=== PATIENT | female | born 1960 | race Caucasian/White ===

== ENCOUNTER 2017-08-08 19:11 | Inpatient (IN) ==
[2017-08-08] MEDS ORDERED: MetroNIDAZOLE 500 MG/100 ML 500 MG/100 ML BAG IVPB ONE (19:49)
[2017-08-08 20:10] LABS: Basophils # 0.1 K/mcL (0.0-0.2); Basophils % 0.5 %; Eosinophils % 0.3 %; Hematocrit 37.8 % (35.3-44.9); Hemoglobin 12.5 g/dL (11.5-15.4); Immature Granulocytes % 0.4 % (0-4); Lymphocytes # 0.8 K/mcL (0.6-4.6); Mean Corpuscular HGB Conc 33.1 g/dL (31.6-35.5); Mean Corpuscular Volume 87.7 fL (83.0-100.0); Mean Platelet Volume 8.6 fL (9.4-12.4); Monocytes # 1.1 K/mcL (0.0-1.3); Monocytes % 9.8 %; Neutrophils # 8.8 K/mcL (1.6-8.9); Platelet Count 270 K/mcL (140-400); Red Blood Count 4.31 M/mcL (3.82-4.97)
--- NOTE | 2017-08-08 20:11 | Emergency Department Note ---
Disposition Clinical Impression: Transaminitis Abdominal pain Qualifiers: Abdominal location: generalized Qualified Code(s): R10.84 - Generalized abdominal pain Nausea and vomiting Qualifiers: Vomiting type: unspecified Vomiting Intractability: unspecified Qualified Code( s): R11.2 - Nausea with vomiting, unspecified Disposition: Admitted As Inpatient Condition: Fair Time of Disposition: 23:15 General Adult HPI - General Chief complaint: ED Nausea/Vomiting/Diarrhea Stated complaint: Nausea/Vomiting/Fever/Chills Time Seen by Provider: 08/08/17 19:15 Source: EMS Limitations: no limitations Nursing Notes Reviewed: Yes Vital Signs Reviewed: Yes - History of Present Illness HPI Narrative: Patient is a 57-year-old female that presents to the emergency department with chest pain, abdominal pain and vomiting. She states that this began this morning. States the chest pain is left side along with right shoulder pain. Patient denies any injury. States that she vomited once today. Has had no diarrhea. Patient states that she has pain on left side of her chest that is nonradiating. She denies any shortness of breath or palpitations at this time. Patient states that she receives chemotherapy every 2 weeks and the last time that she had chemotherapy was approximately 2 weeks ago. She receives treatments here at the cancer center. Pain Scale: 8 - Related Data Previous Rx's Medication Instructions Recorded Lidocaine/Prilocaine CREAM [Emla] 5 gm TP DAILY #1 tube 10/19/15 Dexamethasone [Decadron] 4 mg PO DAILY #30 tablet 03/14/17 LORazepam [Ativan] 1 mg PO Q6H PRN #60 tablet 03/14/17 Ondansetron [Zofran] 8 mg PO Q8HR PRN #90 tablet 03/14/17 Prochlorperazine Maleate 10 mg PO Q6HR PRN #120 tablet 03/14/17 [Compazine] Acyclovir [Zovirax] 400 mg PO DAILY #30 tablet 04/15/17 Pregabalin [Lyrica] 50 mg PO TID #90 capsule 06/11/17 FLUoxetine HCl [Prozac] 40 mg PO DAILY #30 capsule 07/04/17 Lisinopril [Zestril] 20 mg PO DAILY #30 tablet 07/04/17 Pantoprazole Sodium [Protonix] 20 mg PO DAILY #30 tab 07/04/17 Oxycodone HCl [Oxaydo] 5 - 10 mg PO Q4H PRN #180 07/17/17 tablet.orl Allergies Allergy/AdvReac Type Severity Reaction Status Date / Time adhesive tape AdvReac Rash Verified 07/24/17 11:28 Oxycodone [From Tylox] AdvReac Vomiting Verified 07/24/17 11:28 rivaroxaban [From Xarelto] AdvReac See Verified 07/24/17 11:28 Comments All systems ED: reviewed and negative except as stated. Cardiovascular: Reports: chest pain. Denies: palpitations Respiratory: Denies: wheezes Gastrointestinal: Reports: abdominal pain, nausea, vomiting Neurological: Reports: headache Past Medical History - Past Medical History Medical history: Reports: arthritis, cancer, fibromyalgia, GERD, hyperlipidemia , hypertension Surgical history: Reports: cancer surgery Psychiatric history: Reports: depression - Social History Smoking Status: Former smoker Smokeless Tobacco Status: No Alcohol use: Reports: rarely Drug use: Reports: none Physical Exam - General Limitations: no limitations General appearance: alert, other (Patient appears to be uncomfortable) - Head Head exam: atraumatic, normocephalic - Eye Eye exam: Present: normal appearance, EOMI - Neck Neck exam: Present: normal inspection, full ROM, trachea midline - Respiratory Respiratory exam: Present: normal lung sounds bilaterally. Absent: respiratory distress, wheezes - Cardiovascular Cardiovascular exam: Present: tachycardia, normal heart sounds, +S1, +S2 - Abdominal Exam Abdominal exam: Present: soft, tenderness, normal bowel sounds Abdominal tenderness: Present: diffuse, moderate - Neurological Exam Neurological exam: Present: alert, oriented X3 - Psychiatric Psychiatric exam: Present: normal affect, normal mood - Skin Skin exam: Present: warm, dry, intact Course Vital Signs Temperature 97.8 F 08/08/17 19:14 Pulse Rate 117 08/08/17 19:14 Respiratory Rate 20 08/08/17 19:14 Blood Pressure 145/82 08/08/17 19:14 O2 Sat by Pulse Oximetry 94 08/08/17 19:14 Temperature 98.2 F 08/09/17 06:56 Pulse Rate 83 08/09/17 06:56 Respiratory Rate 16 08/09/17 06:56 Blood Pressure 129/84 08/09/17 06:56 O2 Sat by Pulse Oximetry 96 08/09/17 06:56 Oxygen Delivery Oxygen Delivery Room Air Medical Decision Making - MDM Narrative Medical decision making narrative: Patient presenting with nausea vomiting and having some tachycardia with chest discomfort we ordered a CTA of the chest abdomen and pelvis. He also ordered laboratory testing. There was a transaminitis and elevated bilirubin on laboratory findings. CT the chest showed no acute findings. A CT scan of abdomen and pelvis showed There is increased intrahepatic biliary dilation when compared to the previous examination. A ultrasound of the gallbladder was ordered which showed a common bile duct measuring 3-4 mm. Patient will be admitted to the hospital for abdominal pain and elevated laboratory findings. The patient was given a dose of Cipro and Flagyl here in the emergency department. Patient was given a dose of Zofran to help with her nausea. Urinalysis showed moderate leuk esterase. Patient has been given a dose of Cipro which will cover for urinary tract infection. I called and spoke to hospitalist and they have accepted the patient to their service. The patient will be admitted to the hospital at this time. - Medical Records Medical records reviewed: Yes I reviewed the patient's medical records. - Lab Data Lab results reviewed: Yes I reviewed the patient's lab results. Result diagrams: 08/09/17 03:43 08/09/17 03:43 Lab Results 08/08/17 08/08/17 08/08/17 Range/Units 20:00 20:00 20:00 WBC 10.7 (4.3-11.1) K/mcL RBC 4.31 (3.82-4.97) M/mcL Hgb 12.5 (11.5-15.4) g/dL Hct 37.8 (35.3-44.9) % MCV 87.7 (83.0-100.0) fL MCH 29.0 (28.0-33.3) pg MCHC 33.1 (31.6-35.5) g/dL RDW 16.0 H (11.5-14.5) % Plt Count 270 (140-400) K/mcL MPV 8.6 L (9.4-12.4) fL Immature Gran % 0.4 (0-4) % Seg Neutrophils % 82.0 % Lymphocytes % 7.0 % Monocytes % 9.8 % Eosinophils % 0.3 % Basophils % 0.5 % Neutrophils # 8.8 (1.6-8.9) K/mcL Lymphocytes # 0.8 (0.6-4.6) K/mcL Monocytes # 1.1 (0.0-1.3) K/mcL Eosinophils # 0.0 (0.0-0.6) K/mcL Basophils # 0.1 (0.0-0.2) K/mcL PT 11.6 (9.4-12.1) Seconds INR 1.1 APTT 31.0 (26.0-36.0) Seconds Sodium 136 (136-145) mEq/L Potassium 4.1 (3.5-5.1) mEq/L Chloride 102 (98-107) mEq/L Carbon Dioxide 28 (23-29) mEq/L BUN 8 (6-20) mg/dL Creatinine 0.67 (0.60-1.20) mg/dL Est GFR ( Amer) > 60 (> 60) Est GFR (Non-Af Amer) > 60 (> 60) BUN/Creatinine Ratio 12 (6-26) Glucose 114 H (70-105) mg/dL Calculated Osmolality 281 (280-300) Calcium 9.5 (8.6-10.3) mg/dL Total Bilirubin 3.0 H (0.3-1.0) mg/dL Direct Bilirubin 2.0 H (0.0-0.2) mg/dL Indirect Bilirubin 1.0 (0.0-1.2) mg/dL AST 175 H (13-39) Units/L ALT 150 H (7-52) Units/L Alkaline Phosphatase 577 H (34-104) Units/L Troponin I (< 0.04) ng/mL Serum Total Protein 6.6 (6.4-8.9) g/dL Albumin 3.7 (3.5-5.7) g/dL Globulin 2.9 (2.4-3.5) g/dL Albumin/Globulin Ratio 1.3 (1.1-2.2) Lipase 13 (11-82) Units/L Urine Color (Yellow) Urine Clarity (Clear) Urine pH (5.0-8.0) pH Units Ur Specific [place] (1.010-1.025) Urine Protein (Neg-Trace) mg/dL Urine Glucose (UA) (Normal) mg/dL Urine Ketones (Negative) mg/dL Urine Blood (Negative) Urine Nitrite (Negative) Urine Bilirubin (Negative) Urine Urobilinogen (Normal) mg/dL Ur Leukocyte Esterase (Negative) Urine Microscopic RBC (0-3) per hpf Urine Microscopic WBC (0-3) per hpf Ur Squamous Epith Cells (None-Few) per lpf Uric Acid Crystals Urine Bacteria (None-Few) per hpf Hyaline Casts (None-Few) per lpf Ur Culture Indicated? (NO) 08/08/17 08/08/17 Range/Units 20:00 21:04 WBC (4.3-11.1) K/mcL RBC (3.82-4.97) M/mcL Hgb (11.5-15.4) g/dL Hct (35.3-44.9) % MCV (83.0-100.0) fL MCH (28.0-33.3) pg MCHC (31.6-35.5) g/dL RDW (11.5-14.5) % Plt Count (140-400) K/mcL MPV (9.4-12.4) fL Immature Gran % (0-4) % Seg Neutrophils % % Lymphocytes % % Monocytes % % Eosinophils % % Basophils % % Neutrophils # (1.6-8.9) K/mcL Lymphocytes # (0.6-4.6) K/mcL Monocytes # (0.0-1.3) K/mcL Eosinophils # (0.0-0.6) K/mcL Basophils # (0.0-0.2) K/mcL PT (9.4-12.1) Seconds INR APTT (26.0-36.0) Seconds Sodium (136-145) mEq/L Potassium (3.5-5.1) mEq/L Chloride (98-107) mEq/L Carbon Dioxide (23-29) mEq/L BUN (6-20) mg/dL Creatinine (0.60-1.20) mg/dL Est GFR ( Amer) (> 60) Est GFR (Non-Af Amer) (> 60) BUN/Creatinine Ratio (6-26) Glucose (70-105) mg/dL Calculated Osmolality (280-300) Calcium (8.6-10.3) mg/dL Total Bilirubin (0.3-1.0) mg/dL Direct Bilirubin (0.0-0.2) mg/dL Indirect Bilirubin (0.0-1.2) mg/dL AST (13-39) Units/L ALT (7-52) Units/L Alkaline Phosphatase (34-104) Units/L Troponin I < 0.03 (< 0.04) ng/mL Serum Total Protein (6.4-8.9) g/dL Albumin (3.5-5.7) g/dL Globulin (2.4-3.5) g/dL Albumin/Globulin Ratio (1.1-2.2) Lipase (11-82) Units/L Urine Color Dark Yellow (Yellow) Urine Clarity Cloudy A (Clear) Urine pH 8.0 (5.0-8.0) pH Units Ur Specific [place] 1.028 H (1.010-1.025) Urine Protein 30 H (Neg-Trace) mg/dL Urine Glucose (UA) Normal (Normal) mg/dL Urine Ketones Negative (Negative) mg/dL Urine Blood Negative (Negative) Urine Nitrite Negative (Negative) Urine Bilirubin Small H (Negative) Urine Urobilinogen Normal (Normal) mg/dL Ur Leukocyte Esterase Moderate H (Negative) Urine Microscopic RBC 3-5 H (0-3) per hpf Urine Microscopic WBC TNTC H (0-3) per hpf Ur Squamous Epith Cells Many H (None-Few) per lpf Uric Acid Crystals Present Urine Bacteria None Seen (None-Few) per hpf Hyaline Casts None Seen (None-Few) per lpf Ur Culture Indicated? NO (NO) - Radiology Data Radiology results reviewed: Yes I reviewed the patient's radiology results. Abdomen/Pelvis CT 08/08/17 19:46 IMPRESSION: 1. There is increased intrahepatic biliary dilation when compared to the previous examination. This may suggest biliary drain malfunction. The position of the biliary drain is unchanged when compared to the previous exam. Correlate with laboratory evidence of biliary obstruction. 2. Stable postsurgical changes from previous partial hepatectomy. Again, there is hypodensity along the resection margin, which appears stable when compared to the previous exam. That should be followed up on subsequent exams. 3. Nodular lesions within the lower lung on the left. These are concerning for metastatic disease but appear unchanged when compared to the previous exam. 4. Stable mural thickening of the left posterosuperior urinary bladder wall. Continued surveillance of that is recommended. D/ / Samir Marx MD / Samir Marx MD Interpreting Provider: Samir Marx MD Chest CTA 08/08/17 19:46 IMPRESSION: No acute findings. Stable pulmonary findings D/ / Zak Pham MD / Zak Pham MD Interpreting Provider: Zak Pham MD Liver Ultrasound 08/08/17 21:35 IMPRESSION: The common duct is technically normal at 3-4 mm. However, on the CT scan, a biliary stent is in place, and therefore that measurement may not be a reliable indication of whether biliary obstruction is present or not. D/ / Samir Marx MD / Samir Marx MD Interpreting Provider: Samir Marx MD - EKG Data EKG #1 EKG attestation: Yes I reviewed and interpreted this EKG. EKG results narrative: the patient's EKG showed sinus tachycardia at a rate of 107 with a GA interval of 145, QRS duration of 85, QTC of 382. Attestation Statement - Attestation Attestation: Findings of nausea and vomiting. Will obtain gallbladder ultrasound after CT shows possible biliary obstruction. We will rule out choledocholithiasis. I agree with the resident's plan of care. Disposition will be admission.
[2017-08-08 20:15] LABS: INR 1.1; Prothrombin Time 11.6 Seconds (9.4-12.1)
[2017-08-08 20:28] LABS: Alanine Aminotransferase 150 Units/L (7-52); Albumin 3.7 g/dL (3.5-5.7); Albumin/Globulin Ratio 1.3 (1.1-2.2); Alkaline Phosphatase 577 Units/L (34-104); Aspartate Amino Transferase 175 Units/L (13-39); BUN/Creatinine Ratio 12 (6-26); Blood Urea Nitrogen 8 mg/dL (6-20); Calcium 9.5 mg/dL (8.6-10.3); Carbon Dioxide 28 mEq/L (23-29); Chloride 102 mEq/L (98-107); Globulin 2.9 g/dL (2.4-3.5); Glucose 114 mg/dL (70-105); Lipase 13 Units/L (11-82); Osmolality,Calculated 281 (280-300); Potassium 4.1 mEq/L (3.5-5.1); Sodium 136 mEq/L (136-145); Total Protein 6.6 g/dL (6.4-8.9); eGFR For African Americans > 60 (> 60); eGFR For Non-African Americans > 60 (> 60)
[2017-08-08 21:17] LABS: Bilirubin,Urine Small (Negative); Blood,Urine Negative (Negative); Clarity,Urine Cloudy (Clear); Color,Urine Dark Yellow (Yellow); Glucose,Urine (UA) Normal (Normal); Ketones,Urine Negative (Negative); Leukocyte Esterase,Urine Moderate (Negative); Nitrite,Urine Negative (Negative); Protein,Urine 30 mg/dL (Neg-Trace); Specific Gravity,Urine 1.028 (1.010-1.025); Urobilinogen,Urine Normal (Normal)
[2017-08-08 21:18] LABS: Bacteria,Urine None Seen per hpf (None-Few); Hyaline Casts,Urine None Seen per lpf (None-Few); Squamous Epithelial Cell,Urine Many per lpf (None-Few); WBC,Urine TNTC per hpf (0-3)
[2017-08-08 21:28] LABS: Uric Acid Crystals,Urine Present
[2017-08-08] MEDS ORDERED: Ondansetron 4 MG/2 ML VIAL IVP ONE (23:04)
[2017-08-09] MEDS ORDERED: *HR* Morphine 2 MG/ML SYRINGE IVP PRN (02:56)
[2017-08-09] MEDS ORDERED: *HR* Metoprolol 5 MG/5 ML VIAL IVP PRN (02:56)
[2017-08-09] MEDS ORDERED: *HR* OxyCODONE/APAP 5/325 TABLET PO PRN (02:56)
[2017-08-09] MEDS ORDERED: metroNIDAZOLE 500 MG TABLET PO SCH (03:00)
[2017-08-09] MEDS ORDERED: 0.9 % Sodium Chloride 1,000 ML IVC SCH (03:00)
[2017-08-09] MEDS ORDERED: *HR* OxyCODONE Immed Rel 5 MG TABLET PO PRN (03:09)
[2017-08-09] MEDS ORDERED: *HR* LORazepam 1 MG TABLET PO PRN (03:10)
[2017-08-09] MEDS ORDERED: Oxymetazoline Nasal SPRAY BOTTLE NS PRN (03:10)
--- NOTE | 2017-08-09 03:14 | Internal Med History&Physical ---
Date of Encounter: 08/09/17 Time of Encounter: 03:11 Assessment and Plan (1) Abdominal pain Current visit: Yes Status: Acute Likely due to biliary obstruction, possibly cholecystitis or diverticulitis as she does have a history but was not seen on CT today. Will continue Cipro/ Flagyl, give IV fluids, pain and nausea symptomatic treatment. Will avoid Percocet given elevated LFTs. Surgical consult in AM. Qualifiers: Abdominal location: generalized Qualified Code(s): R10.84 - Generalized abdominal pain (2) Colon cancer metastasized to liver Current visit: No Status: Chronic (3) Colon cancer metastasized to lung Current visit: No Status: Chronic (4) Essential hypertension Current visit: Yes Status: Acute Resume home medication (5) GERD (gastroesophageal reflux disease) Current visit: Yes Status: Acute Qualifiers: Esophagitis presence: esophagitis presence not specified Qualified Code(s) : K21.9 - Gastro-esophageal reflux disease without esophagitis (6) Hyperlipidemia Current visit: Yes Status: Acute Qualifiers: Hyperlipidemia type: unspecified Qualified Code(s): E78.5 - Hyperlipidemia , unspecified (7) UTI (urinary tract infection) Current visit: Yes Status: Acute will be covered with Cipro Qualifiers: Urinary tract infection type: site unspecified Hematuria presence: without hematuria Qualified Code(s): N39.0 - Urinary tract infection, site not specified (8) DVT prophylaxis Current visit: Yes Status: Acute Heparin Internal Medicine - H&P: HPI History of present illness: Ms. Hernandez is a 57 year old female with history of colon cancer with mets, history of partial hepatectomy done at [facility], and hypertension presented for acute abdominal pain and dyspnea. Accompanied with nausea/vomiting, emesis, chills, and poor appetite for several days. She denies change in stools, not associated with meals. Colon cancer is actively managed here at [facility] and patient is doing chemotherapy. She takes oxycodone at home for chronic pain but was still persistent. In ED patient was tachycardic in 100-117 bpm and normotensive. She is afebrile and with no leukocytosis. A CT abdomen/pelvis showed increased intrahepatic biliary dilation compared to prior studies which may suggest biliary drain malformation and notes that a stent is in place. A follow-up right upper quadrant ultra sound showed common duct stent and could not reliably rule out biliary obstruction. She had elevated liver enzymes which were higher than most recent LFT studies. Blood cultures were obtained and she was given Cipro/Flagyl IV. A CTA of chest done and negative, was done because patient initially had complaints of dyspnea, which have since resolved. Past Med Surg Social Fam HX - Past Medical History Medical history: arthritis, cancer, fibromyalgia, GERD, hyperlipidemia, hypertension Psychiatric history: depression - Past Surgical History Surgical History: cancer surgery - Social History Smoking Status: Former smoker Smokeless Tobacco Status: No Alcohol use: rarely Drug use: none Internal Medicine - H&P: Meds Lidocaine/Prilocaine CREAM [Emla] 5 gm TP DAILY #1 tube 10/19/15 [Rx] Oxymetazoline [Afrin] 1 spray NS Q12HR PRN #1 bottle 10/28/16 [Rx] Dexamethasone [Decadron] 4 mg PO DAILY #30 tablet 03/14/17 [Rx] LORazepam [Ativan] 1 mg PO Q6H PRN #60 tablet 03/14/17 [Rx] Ondansetron [Zofran] 8 mg PO Q8HR PRN #90 tablet 03/14/17 [Rx] Prochlorperazine Maleate [Compazine] 10 mg PO Q6HR PRN #120 tablet 03/14/17 [Rx] Acyclovir [Zovirax] 400 mg PO DAILY #30 tablet 04/15/17 [Rx] Loperamide [Imodium] 2 mg PO DAILY PRN 05/26/17 [History] Pregabalin [Lyrica] 50 mg PO TID #90 capsule 06/11/17 [Rx] FLUoxetine HCl [Prozac] 40 mg PO DAILY #30 capsule 07/04/17 [Rx] Lisinopril [Zestril] 20 mg PO DAILY #30 tablet 07/04/17 [Rx] Pantoprazole Sodium [Protonix] 20 mg PO DAILY #30 tab 07/04/17 [Rx] Ciprofloxacin HCl [Cipro] 500 mg PO BID 07/16/17 [History] Oxycodone HCl [Oxaydo] 5 - 10 mg PO Q4H PRN #180 tablet.orl 07/17/17 [Rx] 3 Allergy/AdvReac Type Severity Reaction Status Date / Time adhesive tape AdvReac Rash Verified 07/24/17 11:28 Oxycodone [From Tylox] AdvReac Vomiting Verified 07/24/17 11:28 rivaroxaban [From Xarelto] AdvReac See Verified 07/24/17 11:28 Comments All Systems PM: A 10-system review of systems was performed and is negative for pertinent findings except as documented above in the HPI. - Constitutional Constitutional: chills, no excessive sweating, no fever(s), no lethargy, no night sweats, no weakness - EENT Eyes: no change in vision, no discharge, no pain, no photophobia - Cardiovascular Cardiovascular ROS IM: no chest pain, no diaphoresis, no dyspnea, no lightheadedness, no palpitations, no syncope - Respiratory Respiratory: no cough, no dyspnea (resolved), no wheezing, no excessive phlegm production - Gastrointestinal Gastrointestinal: abdominal pain, nausea, vomiting, no change in bowel habits, no change in stool character, no coffee ground emesis, no constipation, no diarrhea, no dyspepsia, no dysphagia, no hematemesis, no hematochezia, no loose stools, no odynophagia - Genitourinary Genitourinary: no change in urinary stream, no dysuria, no flank pain, no hematuria - Musculoskeletal Musculoskeletal ROS IM: no numbness, no tingling - Integumentary Integumentary IM: no rash, no unusual bruising - Constitutional Vitals: Temp Pulse Resp BP Pulse Ox 99.4 F 100 15 140/84 91 08/09/17 00:47 08/09/17 00:47 08/09/17 00:47 08/09/17 00:47 08/09/17 00:47 General appearance: Present: mild distress, A&O X 3 Exam: - Head Head exam: atraumatic, normocephalic - Eye Eye exam: Present: normal appearance, EOMI - Neck Neck exam: Present: normal inspection, full ROM, trachea midline - Respiratory Respiratory exam: Present: normal lung sounds bilaterally. Absent: respiratory distress, wheezes - Cardiovascular Cardiovascular exam: Present: tachycardia, normal heart sounds, +S1, +S2 - Abdominal Exam Abdominal exam: Present: soft, tenderness, normal bowel sounds Abdominal tenderness: Present: diffuse, moderate - Neurological Exam Neurological exam: Present: alert, oriented X3 - Psychiatric Psychiatric exam: Present: normal affect, normal mood - Skin Skin exam: Present: warm, dry, intact Internal Med - H&P Results - Labs CBC & Chem 7: 08/08/17 20:00 08/08/17 20:00
[2017-08-09] MEDS ORDERED: Naloxone 0.4 MG/ML INJ IVP PRN (03:32)
[2017-08-09 03:50] LABS: Basophils % 0.4 %; Eosinophils % 0.3 %; Hematocrit 36.8 % (35.3-44.9); Hemoglobin 12.2 g/dL (11.5-15.4); Immature Granulocytes % 0.4 % (0-4); Lymphocytes # 1.3 K/mcL (0.6-4.6); Lymphocytes % 12.5 %; Mean Corpuscular HGB Conc 33.2 g/dL (31.6-35.5); Mean Corpuscular Hemoglobin 29.3 pg (28.0-33.3); Mean Corpuscular Volume 88.5 fL (83.0-100.0); Mean Platelet Volume 8.7 fL (9.4-12.4); Monocytes # 1.3 K/mcL (0.0-1.3); Neutrophils # 7.9 K/mcL (1.6-8.9); Platelet Count 289 K/mcL (140-400); Red Blood Count 4.16 M/mcL (3.82-4.97); Red Cell Distribution Width 16.2 % (11.5-14.5); Segmented Neutrophils % 74.4 %
[2017-08-09 04:06] LABS: BUN/Creatinine Ratio 12 (6-26); Blood Urea Nitrogen 8 mg/dL (6-20); Carbon Dioxide 25 mEq/L (23-29); Chloride 102 mEq/L (98-107); Glucose 108 mg/dL (70-105); Potassium 3.7 mEq/L (3.5-5.1); Sodium 136 mEq/L (136-145); eGFR For African Americans > 60 (> 60); eGFR For Non-African Americans > 60 (> 60)
[2017-08-09 04:07] LABS: Albumin 3.6 g/dL (3.5-5.7); Albumin/Globulin Ratio 1.3 (1.1-2.2); Bilirubin,Direct 2.6 mg/dL (0.0-0.2); Bilirubin,Indirect 1.7 mg/dL (0.0-1.2); Bilirubin,Total 4.3 mg/dL (0.3-1.0); Calcium 9.4 mg/dL (8.6-10.3); Globulin 2.8 g/dL (2.4-3.5); Osmolality,Calculated 281 (280-300); Total Protein 6.4 g/dL (6.4-8.9)
[2017-08-09] MEDS ORDERED: *HR* Heparin 5,000 UNIT/ML VIAL SQ SCH (06:00)
[2017-08-09 06:57] VITALS: BP 129/84
[2017-08-09] MEDS ORDERED: Acyclovir 200 MG CAPSULE PO SCH (09:00)
[2017-08-09] MEDS ORDERED: FLUoxetine 20 MG CAPSULE PO SCH (09:00)
[2017-08-09] MEDS ORDERED: Pregabalin 50 MG CAPSULE PO SCH (09:00)
[2017-08-09] MEDS ORDERED: Lisinopril 20 MG TABLET PO SCH (09:00)
--- NOTE | 2017-08-09 16:11 | Discharge Summary ---
Date of Encounter: 08/09/17 Time of Encounter: 16:11 - Discharge Medications Home Medications: Lidocaine/Prilocaine CREAM [Emla] 5 gm TP DAILY #1 tube 10/19/15 [Rx] Dexamethasone [Decadron] 4 mg PO DAILY #30 tablet 03/14/17 [Rx] LORazepam [Ativan] 1 mg PO Q6H PRN #60 tablet 03/14/17 [Rx] Ondansetron [Zofran] 8 mg PO Q8HR PRN #90 tablet 03/14/17 [Rx] Prochlorperazine Maleate [Compazine] 10 mg PO Q6HR PRN #120 tablet 03/14/17 [Rx] Acyclovir [Zovirax] 400 mg PO DAILY #30 tablet 04/15/17 [Rx] Pregabalin [Lyrica] 50 mg PO TID #90 capsule 06/11/17 [Rx] FLUoxetine HCl [Prozac] 40 mg PO DAILY #30 capsule 07/04/17 [Rx] Lisinopril [Zestril] 20 mg PO DAILY #30 tablet 07/04/17 [Rx] Pantoprazole Sodium [Protonix] 20 mg PO DAILY #30 tab 07/04/17 [Rx] Oxycodone HCl [Oxaydo] 5 - 10 mg PO Q4H PRN #180 tablet.orl 07/17/17 [Rx] Allergies/Adverse Reactions: 3 Allergy/AdvReac Type Severity Reaction Status Date / Time adhesive tape AdvReac Rash Verified 07/24/17 11:28 Oxycodone [From Tylox] AdvReac Vomiting Verified 07/24/17 11:28 rivaroxaban [From Xarelto] AdvReac See Verified 07/24/17 11:28 Comments Date of admission: 08/09/17 03:32 Primary care physician: Jennifer Fortune Consults: 08/09/17 03:34 Consult to Surgery [CONS] Routine Consulting Provider: [facility] Reason for Consult: Acute abominal pain, possible biliary obstruction. Call Completed: No - Patient Status Disposition: Transfer [facility] Condition: Fair - Discharge Instructions Instructions: Acute Abdominal Pain (DC) Follow Up With: Marcell Simon DO [Primary Care Provider] - Interval History: Patient was transferred to outside facility as she needed and ERCP because of dilated common bile duct. This cannot be done at our hospital in the weekend. Patient was hemodynamically stable. She was showing no signs of cholangitis. She was normotensive undischarged. I did not have a chance to take detailed history and examination of the patient which was done earlier by admitting physician. Hospital course: Ms. Hernandez is a 57 year old female - Time Spent with Patient Total time spent providing and/or coordinating discharge services: - Constitutional Vitals: Temp Pulse Resp BP Pulse Ox 98.2 F 83 16 129/84 96 08/09/17 06:56 08/09/17 06:56 08/09/17 06:56 08/09/17 06:56 08/09/17 06:56 General appearance: Present: mild distress, A&O X 3
--- NOTE | 2017-08-12 15:00 | Electrocardiograph Report ---
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
== END 2017-08-09 11:32 | disposition other institution (70) | DRG 445 ==
LOC: EMEROO 19:11 → 3ANU 19:11
PROVIDERS: ADMIT Student in an Organized Health Care Education/Training Program; ATTEND Internal Medicine

== ENCOUNTER 2017-11-20 11:22 | Inpatient (IN) ==
--- NOTE | 2017-11-20 11:29 | Emergency Department Note ---
Disposition Clinical Impression: Vertigo, Unable to ambulate Fall Qualifiers: Encounter type: initial encounter Qualified Code(s): W19.XXXA - Unspecified fall, initial encounter Head injury Qualifiers: Encounter type: initial encounter Qualified Code(s): S09.90XA - Unspecified injury of head, initial encounter Disposition: Admitted As Inpatient Condition: Good Referrals: Marcell Simon DO [Primary Care Provider] - Forms: ED Satisfaction Letter Time of Disposition: 14:21 Fall HPI - General Chief Complaint: ED Fall Stated Complaint: Fall Time Seen by Provider: 11/20/17 11:28 Source: patient Mode of arrival: ambulatory Limitations: no limitations Nursing Notes Reviewed: Yes Vital Signs Reviewed: Yes - History of Present Illness HPI Narrative: Patient is a 57 old female with past medical history of 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 She presents today due to fall. She is not currently on any blood thinners, does admit that she is on aspirin 81 mg daily. She says that she was at home, bent over and getting something out of the freezer, stood up quickly and her vision went dark, she felt lightheaded and then fell backwards. She denies any syncope before or after the event. She had no right posterior aspect of her head on carpeted floor. Denies any other injuries. She does admit to pain on the back of her head and also some mild cervical spine pain. Otherwise, denies any other numbness, tingling, weakness, any other injury, nausea, vomiting, abdominal pain, extremities pain. - Related Data Home Medications Medication Instructions Recorded Confirmed Amlodipine Besylate 10 mg PO DAILY 11/13/17 11/13/17 Docusate Sodium [Dok] 100 mg PO BID 11/13/17 11/13/17 Sennosides [Senna] 8.6 mg PO DAILY 11/13/17 11/13/17 Previous Rx's Medication Instructions Recorded Lidocaine/Prilocaine CREAM [Emla] 5 gm TP DAILY #1 tube 10/19/15 Dexamethasone [Decadron] 4 mg PO DAILY #30 tablet 03/14/17 LORazepam [Ativan] 1 mg PO Q6H PRN #60 tablet 03/14/17 Ondansetron [Zofran] 8 mg PO Q8HR PRN #90 tablet 03/14/17 Prochlorperazine Maleate 10 mg PO Q6HR PRN #120 tablet 03/14/17 [Compazine] Acyclovir [Zovirax] 400 mg PO DAILY #30 tablet 04/15/17 FLUoxetine HCl [Prozac] 40 mg PO DAILY #30 capsule 07/04/17 Lisinopril [Zestril] 20 mg PO DAILY #30 tablet 07/04/17 Pantoprazole Sodium [Protonix] 20 mg PO DAILY #30 tab 07/04/17 diazePAM [Valium] 5 mg PO Q6H PRN #10 tablet 08/28/17 Pregabalin [Lyrica] 50 mg PO TID 30 Days #90 capsule 09/18/17 Doxycycline 100 mg PO BID #60 capsule 11/13/17 FentaNYL PATCH [Duragesic] 25 mcg TD Q72H 30 Days #10 11/13/17 patch.td72 Oxycodone HCl [Oxaydo] 5 - 10 mg PO Q6H PRN 15 Days #120 11/13/17 tablet.orl Vemurafenib [Zelboraf] 960 mg PO BID #240 tablet 11/14/17 Allergies Allergy/AdvReac Type Severity Reaction Status Date / Time adhesive tape AdvReac Rash Verified 11/20/17 11:32 Oxycodone [From Tylox] AdvReac Vomiting Verified 11/20/17 11:32 rivaroxaban [From Xarelto] AdvReac See Verified 11/20/17 11:32 Comments All systems ED: reviewed and negative except as stated. Constitutional: Denies: fever Cardiovascular: Denies: chest pain Respiratory: Denies: cough, dyspnea Gastrointestinal: Denies: abdominal pain, nausea, vomiting, diarrhea Genitourinary: Denies: urgency, dysuria Musculoskeletal: Reports: neck pain. Denies: back pain Integumentary: Denies: rash Neurological: Reports: headache. Denies: weakness, paresthesias Fall PMH - Past Medical History Medical history: Reports: arthritis, cancer, fibromyalgia, GERD, hyperlipidemia , hypertension Surgical history: Reports: cancer surgery Psychiatric history: Reports: depression - Social History Smoking Status: Former smoker Alcohol use: Reports: rarely Drug use: Reports: none Physical Exam - General Limitations: no limitations General appearance: alert, in no apparent distress - Head Head exam: other (right posterior occiput edema and possible hematoma; No open lesions or bruising. ) - Eye Eye exam: Present: normal appearance, PERRL, EOMI - ENT ENT exam: normal exam, normal oropharynx, mucous membranes moist - Neck Neck exam: Present: normal inspection, full ROM, trachea midline, tenderness ( mild tenderness both spinous process and paraspinal muscle C3-C4) - Chest Chest inspection: Present: normal inspection, symmetric chest wall rise - Respiratory Respiratory exam: Present: normal lung sounds bilaterally - Cardiovascular Cardiovascular exam: Present: regular rate, normal rhythm, normal heart sounds - Abdominal Exam Abdominal exam: Present: soft, Non-Tender. Absent: tenderness, distention, guarding, rebound, rigidity - Extremities Exam Extremities exam: Present: normal inspection, full ROM. Absent: tenderness, pedal edema - Neurological Exam Neurological exam: Present: alert, oriented X3, CN II-XII intact. Absent: motor sensory deficit - Psychiatric Psychiatric exam: Present: normal affect, normal mood - Skin Skin exam: Present: warm, dry, intact, normal color Course Course Narrative: Patient mildly hypertensive on presentation. Otherwise, the rest of the vitals within normal limits. Physical exam shows right posterior occiput edema approximately 3 x 3 cm with no overlying bruising or open lesions. She had some mild paraspinal and spinous process tenderness of C3 and C4. Otherwise, no other obvious injuries. No pain in extremities. No focal neurologic deficits. Cranial nerves II through XII intact. Abdomen soft and nontender. Heart regular rate and rhythm, lungs clear to auscultation. She is not currently on any blood thinners except for aspirin 81 mg daily. Due to site of injury and reported mild confusion after a fall [address] and cervical spine CT due to cervical spinous process tenderness. 14:06 CT the head and cervical spine were negative for acute abnormalities. Patient was reassessed. She is now having vertigo and feels as though the room is spinning every time she tries to raise the bed. She denies any other numbness, tingling, weakness, vision changes. She says that this felt different from original symptom that she felt prior to falling. She feels that she is unable to ambulate at this time. We will admit the patient for further care and observation. Cervical Spine CT 11/20/17 11:42 IMPRESSION: 1. No acute abnormality of the cervical spine. D/ / Wan Grijalva MD / Wan Grijalva MD Interpreting Provider: Wan Grijalva MD Head CT 11/20/17 11:42 IMPRESSION: No acute intracranial abnormality. D/ / Rigo Espinosa MD / Rigo Espinosa MD Interpreting Provider: Rigo Espinosa MD Vital Signs Temperature 97.8 F 11/20/17 11:32 Pulse Rate 86 11/20/17 11:32 Respiratory Rate 11 11/20/17 11:32 Blood Pressure 169/82 11/20/17 11:32 O2 Sat by Pulse Oximetry 98 11/20/17 11:32 Temperature 97.8 F 11/20/17 11:32 Pulse Rate 84 11/20/17 14:02 Respiratory Rate 13 11/20/17 11:41 Blood Pressure 183/84 11/20/17 14:02 O2 Sat by Pulse Oximetry 98 11/20/17 14:02 Oxygen Delivery Oxygen Delivery Room Air Fall - MDM Narrative Medical decision making narrative: CT the head and cervical spine were negative for acute abnormalities. Patient was reassessed. She is now having vertigo and feels as though the room is spinning every time she tries to raise the bed. She denies any other numbness, tingling, weakness, vision changes. She says that this felt different from original symptom that she felt prior to falling. She feels that she is unable to ambulate at this time. We will admit the patient for further care and observation. - Medical Records Medical records reviewed: Yes I reviewed the patient's medical records. - Lab Data Lab results reviewed: Yes I reviewed the patient's lab results. Result diagrams: 11/20/17 13:30 Lab Results 11/20/17 Range/Units 13:30 WBC 10.8 (4.3-11.1) K/mcL RBC 4.28 (3.82-4.97) M/mcL Hgb 12.7 (11.5-15.4) g/dL Hct 38.8 (35.3-44.9) % MCV 90.7 (83.0-100.0) fL MCH 29.7 (28.0-33.3) pg MCHC 32.7 (31.6-35.5) g/dL RDW 16.4 H (11.5-14.5) % Plt Count 286 (140-400) K/mcL MPV 9.6 (9.4-12.4) fL Immature Gran % 0.5 (0-4) % Seg Neutrophils % 73.2 % Lymphocytes % 16.7 % Monocytes % 8.0 % Eosinophils % 0.8 % Basophils % 0.8 % Neutrophils # 7.9 (1.6-8.9) K/mcL Lymphocytes # 1.8 (0.6-4.6) K/mcL Monocytes # 0.9 (0.0-1.3) K/mcL Eosinophils # 0.1 (0.0-0.6) K/mcL Basophils # 0.1 (0.0-0.2) K/mcL - Radiology Data Radiology results reviewed: Yes I reviewed the patient's radiology results. Cervical Spine CT 11/20/17 11:42 IMPRESSION: 1. No acute abnormality of the cervical spine. D/ / Wan Grijalva MD / Wan Grijalva MD Interpreting Provider: Wan Grijalva MD Head CT 11/20/17 11:42 IMPRESSION: No acute intracranial abnormality. D/ / Rigo Espinosa MD / Rigo Espinosa MD Interpreting Provider: Rigo Espinosa MD - EKG Data EKG attestation: Yes I reviewed and interpreted this EKG. EKG results narrative: 11/20/2017 at 11:26. Normal sinus rhythm. Rate 84. [place] 161. QRS 92. QTC 393. Normal axis. No acute ST elevation or depression. S.B.A.R. - S.B.A.R. Situation: Demographics, MOA Background: Presenting Complaint, Relevant PMH, Meds, & Allergies Assessment: Vital Signs, Course and respsone to treatment, Exam Concerns, Patient/Family Expectation, Pertinant Lab Results Recommendation: Barrier(s) to disposition, Recommendation based on pending studies, treatments, or consults [facility] Report Given to: Dr. Gerri Jacobs Repor Time: 14:21
--- NOTE | 2017-11-20 11:54 | Emergency Department Note ---
Disposition Clinical Impression: Vertigo, Unable to ambulate Fall Qualifiers: Encounter type: initial encounter Qualified Code(s): W19.XXXA - Unspecified fall, initial encounter Head injury Qualifiers: Encounter type: initial encounter Qualified Code(s): S09.90XA - Unspecified injury of head, initial encounter Disposition: Admitted As Inpatient Condition: Good General Adult HPI - General Chief complaint: ED Dizziness Stated complaint: Fall Time Seen by Provider: 11/20/17 11:28 Source: EMS Mode of arrival: ambulatory Limitations: no limitations - History of Present Illness Pain Scale: 7 - Related Data Home Medications Medication Instructions Recorded Confirmed Amlodipine Besylate 10 mg PO DAILY 11/13/17 11/20/17 Docusate Sodium [Dok] 100 mg PO BID 11/13/17 11/20/17 Sennosides [Senna] 8.6 mg PO DAILY 11/13/17 11/20/17 Previous Rx's Medication Instructions Recorded Lidocaine/Prilocaine CREAM [Emla] 5 gm TP DAILY #1 tube 10/19/15 Dexamethasone [Decadron] 4 mg PO DAILY #30 tablet 03/14/17 LORazepam [Ativan] 1 mg PO Q6H PRN #60 tablet 03/14/17 Ondansetron [Zofran] 8 mg PO Q8HR PRN #90 tablet 03/14/17 Prochlorperazine Maleate 10 mg PO Q6HR PRN #120 tablet 03/14/17 [Compazine] Acyclovir [Zovirax] 400 mg PO DAILY #30 tablet 04/15/17 FLUoxetine HCl [Prozac] 40 mg PO DAILY #30 capsule 07/04/17 Lisinopril [Zestril] 20 mg PO DAILY #30 tablet 07/04/17 Pantoprazole Sodium [Protonix] 20 mg PO DAILY #30 tab 07/04/17 diazePAM [Valium] 5 mg PO Q6H PRN #10 tablet 08/28/17 Pregabalin [Lyrica] 50 mg PO TID 30 Days #90 capsule 09/18/17 Doxycycline 100 mg PO BID #60 capsule 11/13/17 FentaNYL PATCH [Duragesic] 25 mcg TD Q72H 30 Days #10 11/13/17 patch.td72 Oxycodone HCl [Oxaydo] 5 - 10 mg PO Q6H PRN 15 Days #120 11/13/17 tablet.orl Vemurafenib [Zelboraf] 960 mg PO BID #240 tablet 11/14/17 Allergies Allergy/AdvReac Type Severity Reaction Status Date / Time adhesive tape AdvReac Rash Verified 11/20/17 11:32 Oxycodone [From Tylox] AdvReac Vomiting Verified 11/20/17 11:32 rivaroxaban [From Xarelto] AdvReac See Verified 11/20/17 11:32 Comments Past Medical History - Past Medical History Medical history: Reports: arthritis, cancer, diabetes, fibromyalgia, GERD, hyperlipidemia, hypertension Surgical history: Reports: cancer surgery Psychiatric history: Reports: depression - Social History Smoking Status: Former smoker Smokeless Tobacco Status: No Alcohol use: Reports: rarely Drug use: Reports: none Physical Exam - General Limitations: no limitations General appearance: alert, in no apparent distress Course Vital Signs Temperature 97.8 F 11/20/17 11:32 Pulse Rate 86 11/20/17 11:32 Respiratory Rate 11 11/20/17 11:32 Blood Pressure 169/82 11/20/17 11:32 O2 Sat by Pulse Oximetry 98 11/20/17 11:32 Temperature 97.9 F 11/20/17 18:40 Pulse Rate 85 11/20/17 18:40 Respiratory Rate 14 11/20/17 18:40 Blood Pressure 163/87 11/20/17 18:40 O2 Sat by Pulse Oximetry 96 11/20/17 18:40 Oxygen Delivery Oxygen Delivery Room Air Medical Decision Making - Lab Data Result diagrams: 11/20/17 13:30 11/20/17 13:30 Lab Results 11/20/17 11/20/17 Range/Units 13:30 13:30 WBC 10.8 (4.3-11.1) K/mcL RBC 4.28 (3.82-4.97) M/mcL Hgb 12.7 (11.5-15.4) g/dL Hct 38.8 (35.3-44.9) % MCV 90.7 (83.0-100.0) fL MCH 29.7 (28.0-33.3) pg MCHC 32.7 (31.6-35.5) g/dL RDW 16.4 H (11.5-14.5) % Plt Count 286 (140-400) K/mcL MPV 9.6 (9.4-12.4) fL Immature Gran % 0.5 (0-4) % Seg Neutrophils % 73.2 % Lymphocytes % 16.7 % Monocytes % 8.0 % Eosinophils % 0.8 % Basophils % 0.8 % Neutrophils # 7.9 (1.6-8.9) K/mcL Lymphocytes # 1.8 (0.6-4.6) K/mcL Monocytes # 0.9 (0.0-1.3) K/mcL Eosinophils # 0.1 (0.0-0.6) K/mcL Basophils # 0.1 (0.0-0.2) K/mcL Sodium 140 (136-145) mEq/L Potassium 4.3 (3.5-5.1) mEq/L Chloride 101 (98-107) mEq/L Carbon Dioxide 26 (23-29) mEq/L BUN 16 (6-20) mg/dL Creatinine 0.56 L (0.60-1.20) mg/dL Est GFR ( Amer) > 60 (> 60) Est GFR (Non-Af Amer) > 60 (> 60) BUN/Creatinine Ratio 29 H (6-26) Glucose 86 (70-105) mg/dL Calculated Osmolality 290 (280-300) Calcium 10.3 (8.6-10.3) mg/dL Attestation Statement - Attestation Attestation: I examined this patient and my medical decision-making was reviewed with the CORPORATE TAX MANAGER/PA/Advanced Practice Nurse/Resident Physician. I agree with the documented findings, disposition and treatment plan as described except to the extent set forth below. The patient has a history of colon cancer with last chemotherapy 4 weeks ago and she presents after standing up quickly becoming lightheaded and falling but there was no syncope. Did have some pain in the head previously but that is resolved now. Does have a hematoma over the occiput as well as a moderate amount of midline posterior cervical spine pain with my palpation and for that reason she will have CT imaging of the head and neck. She is not currently anticoagulated but does take an aspirin. She denies any numbness or weakness of the extremities, slurred speech, facial droop or confusion. She is bright and alert and conversational in the room. [id number]
[2017-11-20] MEDS: 0.9 % Sodium Chloride 1,000 ML IVC SCH ×3 (13:50→21:44)
[2017-11-20] MEDS ORDERED: *HR* OxyCODONE Immed Rel 5 MG TABLET PO ONE (14:06)
[2017-11-20 14:19] LABS: Basophils # 0.1 K/mcL (0.0-0.2); Basophils % 0.8 %; Eosinophils # 0.1 K/mcL (0.0-0.6); Eosinophils % 0.8 %; Hematocrit 38.8 % (35.3-44.9); Hemoglobin 12.7 g/dL (11.5-15.4); Immature Granulocytes % 0.5 % (0-4); Lymphocytes # 1.8 K/mcL (0.6-4.6); Lymphocytes % 16.7 %; Mean Corpuscular HGB Conc 32.7 g/dL (31.6-35.5); Mean Corpuscular Hemoglobin 29.7 pg (28.0-33.3); Mean Corpuscular Volume 90.7 fL (83.0-100.0); Mean Platelet Volume 9.6 fL (9.4-12.4); Monocytes # 0.9 K/mcL (0.0-1.3); Neutrophils # 7.9 K/mcL (1.6-8.9); Platelet Count 286 K/mcL (140-400); Red Blood Count 4.28 M/mcL (3.82-4.97); Red Cell Distribution Width 16.4 % (11.5-14.5); Segmented Neutrophils % 73.2 %
[2017-11-20 14:35] LABS: BUN/Creatinine Ratio 29 (6-26); Blood Urea Nitrogen 16 mg/dL (6-20); Calcium 10.3 mg/dL (8.6-10.3); Carbon Dioxide 26 mEq/L (23-29); Chloride 101 mEq/L (98-107); Glucose 86 mg/dL (70-105); Osmolality,Calculated 290 (280-300); Potassium 4.3 mEq/L (3.5-5.1); Sodium 140 mEq/L (136-145); eGFR For African Americans > 60 (> 60); eGFR For Non-African Americans > 60 (> 60)
[2017-11-20] MEDS ORDERED: *HR* LORazepam 1 MG TABLET PO PRN (16:34)
--- NOTE | 2017-11-20 16:42 | Internal Med History&Physical ---
<Abimael Gayle J - Last Filed: 11/20/17 22:00> Date of Encounter: 11/20/17 Time of Encounter: 16:40 Internal Medicine - H&P: HPI Chief complaint: fell, hit head Admitted From: Home Plans for Post Hospital Care: Home History of present illness: Ms. Hernandez is a 57 year old female with a PMH of colon cancer with metastases to the liver, and lungs. Also has bladder cancer, unsure if its a primary or additional metastatic disease. She presents to [facility] today after falling and hitting her head at home. She does take ASA at home but is not on any blood thinners. She reports that she was getting something out of the freezer and her vision went dark and she felt severely dizzy and hit her head. She denies any palpitations, tachycardia, denies any loss of consciousness, chest pain, paresthesias or slurred speech, or facial droop. She does admit to some neck pain. Workup of C-spine show no acute abnormalities, Ct-Head with no acute intracranial abnormalities. With her hx of cancer and presentation she is being admitted for further evaluation. Past Med Surg Social Fam HX - Past Medical History Medical history: arthritis, cancer, fibromyalgia, GERD, hyperlipidemia, hypertension Psychiatric history: depression - Past Surgical History Surgical History: cancer surgery - Social History Smoking Status: Former smoker Smokeless Tobacco Status: No Alcohol use: rarely Drug use: none - Family History Mother Hx Family Cardiac Disorders: Yes (CAD) Hx Family Endocrine Disorder: Yes (DM) Internal Medicine - H&P: Meds Lidocaine/Prilocaine CREAM [Emla] 5 gm TP DAILY #1 tube 10/19/15 [Rx] Dexamethasone [Decadron] 4 mg PO DAILY #30 tablet 03/14/17 [Rx] LORazepam [Ativan] 1 mg PO Q6H PRN #60 tablet 03/14/17 [Rx] Ondansetron [Zofran] 8 mg PO Q8HR PRN #90 tablet 03/14/17 [Rx] Prochlorperazine Maleate [Compazine] 10 mg PO Q6HR PRN #120 tablet 03/14/17 [Rx] Acyclovir [Zovirax] 400 mg PO DAILY #30 tablet 04/15/17 [Rx] FLUoxetine HCl [Prozac] 40 mg PO DAILY #30 capsule 07/04/17 [Rx] Lisinopril [Zestril] 20 mg PO DAILY #30 tablet 07/04/17 [Rx] Pantoprazole Sodium [Protonix] 20 mg PO DAILY #30 tab 07/04/17 [Rx] diazePAM [Valium] 5 mg PO Q6H PRN #10 tablet 08/28/17 [Rx] Pregabalin [Lyrica] 50 mg PO TID 30 Days #90 capsule 09/18/17 [Rx] Amlodipine Besylate 10 mg PO DAILY 11/13/17 [History] Docusate Sodium [Dok] 100 mg PO BID 11/13/17 [History] Doxycycline 100 mg PO BID #60 capsule 11/13/17 [Rx] FentaNYL PATCH [Duragesic] 25 mcg TD Q72H 30 Days #10 patch.td72 11/13/17 [Rx] Oxycodone HCl [Oxaydo] 5 - 10 mg PO Q6H PRN 15 Days #120 tablet.orl 11/13/17 [Rx ] Sennosides [Senna] 8.6 mg PO DAILY 11/13/17 [History] Vemurafenib [Zelboraf] 960 mg PO BID #240 tablet 11/14/17 [Rx] 3 Allergy/AdvReac Type Severity Reaction Status Date / Time adhesive tape AdvReac Rash Verified 11/20/17 11:32 Oxycodone [From Tylox] AdvReac Vomiting Verified 11/20/17 11:32 rivaroxaban [From Xarelto] AdvReac See Verified 11/20/17 11:32 Comments All Systems PM: A 10-system review of systems was performed and is negative for pertinent findings except as documented above in the HPI. Review of systems: REVIEW OF SYSTEMS GENERAL: Negative for any nausea, vomiting, fevers, chills, or weight loss. NEUROLOGIC: Negative for any blurry vision, blind spots, double vision, facial asymmetry, dysphagia, dysarthria, hemiparesis. Positive for disequilibrium and dizziness as well as facial tingling along right orbital socket HEENT: Negative for any head trauma, neck trauma, neck stiffness, photophobia, phonophobia, sinusitis, rhinitis. CARDIAC: Negative for any chest pain, dyspnea on exertion, paroxysmal nocturnal dyspnea, peripheral edema. PULMONARY: Negative for any shortness of breath, wheezing, COPD, or TB exposure. GASTROINTESTINAL: Negative for any abdominal pain, nausea, vomiting, bright red blood per rectum, melena. GENITOURINARY: Negative for any dysuria, hematuria, incontinence. INTEGUMENTARY: Negative for any rashes, cuts, insect bites. RHEUMATOLOGIC: Negative for any joint pains, photosensitive rashes, history of vasculitis or kidney problems. HEMATOLOGIC: Negative for any abnormal bruising, frequent infections or bleeding. - Constitutional Vitals: Temp Pulse Resp BP Pulse Ox 97.8 F 78 18 158/79 93 11/20/17 16:27 11/20/17 16:27 11/20/17 16:27 11/20/17 16:27 11/20/17 16:27 General appearance: Present: cooperative, A&O X 3, no acute distress, answers questions appropriately - Eye Eye exam: Present: PERRL Additional comments: B/L eyes able to cross midline, left eye has 5 beats of horizontal nystagmus, right eye 1 beat horizontal nystagmus - Neck Neck exam general surgery: Present: supple, trachea midline. Absent: lymphadenopathy - Respiratory Respiratory exam: Present: CTAB. Absent: accessory muscle use, rales, rhonchi, wheezes - Cardiovascular Cardiovascular exam: Present: RRR, +S1, +S2. Absent: diastolic murmur, gallop, rubs, systolic murmur - GI/Abdominal GI/Abdominal exam: Present: normal bowel sounds, soft, no peritoneal signs. Absent: distended, tenderness - Extremities Exam Extremities exam: Present: warm, radial pulses palpable and symmetrical. Absent : calf tenderness, cyanotic, pedal edema - Neurological Exam Neurological exam: Present: alert, CN II-XII intact, oriented X3, no focal deficits. Absent: pronater drift, facial droop, speech deficit - Expanded Neurological Exam Neurological exam expanded: Absent: expressive aphasia, receptive aphasia Patient oriented to: Present: person, place, time Speech: Present: fluid speech Cranial Nerves: nystagmus PM: Abnormal Left Cerebellar function: finger to nose: Normal, heel to bull: Normal Sensory exam: lower extremity light touch: Normal, upper extremity light touch: Normal Neuro motor strength exam: LUE: 5, RUE: 5, LLE: 5, RLE: 5 Coma Scale Eye Opening: Spontaneous Coma Scale Motor Response: Obeys Commands Coma Scale Verbal Response: Oriented Coma Scale Total: 15 - Skin Skin exam: Present: dry, intact Internal Med - H&P Results - Labs CBC & Chem 7: 11/20/17 13:30 11/20/17 13:30 - EKG Data -: EKG Interpreted by Myself EKG shows normal: sinus rhythm Rate: normal - EKG Data Prior EKG available for review: no - Impressions Impressions Cervical Spine CT 11/20/17 11:42 IMPRESSION: 1. No acute abnormality of the cervical spine. D/ / Wan Grijalva MD / Wan Grijalva MD Interpreting Provider: Wan Grijalva MD Head CT 11/20/17 11:42 IMPRESSION: No acute intracranial abnormality. D/ / Rigo Espinosa MD / Rigo Espinosa MD Interpreting Provider: Rigo Espinosa MD - Assessment and plan (1) Fall Current Visit: Yes Status: Acute Assessment and plan: Fell this afternoon d/t dizziness of unknown etiology. It is unclear whether or not this is cardiac or neurologically mediated. She reports that she was at her refrigerator and suddenly felt severely dizzy and fell resulting in her hitting her head. She denies any loss of consciousness but is mildly confused. Denies any headaches, blurred vision, palpitations or tachycardia. Does not appear to have BPV per my assessment. I did note 5 beats of horizontal nystagmus on her left eye on examination. No focal neurological deficits otherwise. She does have a h/o colon cancer with metastasis to the liver and lungs. Also has bladder cancer unclear if primary or metastatic disease. Follow with [facility]. D/t h/o metastatic disease there is some concern for brain metastasis being the cause for dizziness. PLAN: - CT head shows no acute intracranial abnormality - MRI Brain with and without contrast pending - Telemetry - Cardiac enzymes x 2 q 2hr - EKG no ischemic changes - Urine tox pending - UA pending - 2D Echo - Carotid duplex - Resume home medications - Heparin 5000 U SQ BID - Consider neurology and cardiology consult based on results of pending diagnostic studies Qualifiers: Encounter type: initial encounter Qualified Code(s): W19.XXXA - Unspecified fall, initial encounter (2) Dizziness Current Visit: Yes Status: Acute (3) Unable to ambulate Current Visit: Yes Status: Acute Assessment and plan: The patient fell today d/t dizziness resulting in her hitting her head. She is now reporting that she becomes severely dizzy with movement and is unable to ambulate. See further planning above (4) Vertigo Current Visit: Yes Status: Suspected (5) Essential hypertension Current Visit: Yes Status: Acute Assessment and plan: H/o HTN, most recent SBP 158/79 resume home anti-htn medications 5mg metoprolol IVP PRN for SBP greater than 160 continued monitoring of BP (6) Colon cancer metastasized to liver Current Visit: Yes Status: Chronic Assessment and plan: H/o colon cancer with metastasis to the liver, and lungs. Additionally has bladder cancer but it is unclear whether or not this is a primary cancer or peritoneal metastasis (7) Colon cancer metastasized to lung Current Visit: Yes Status: Chronic (8) Bladder cancer Current Visit: Yes Status: Acute Assessment and plan: H/O bladder cancer. Unclear if it is primary or metastatic disease Qualifiers: Bladder location: unspecified site Qualified Code(s): C67.9 - Malignant neoplasm of bladder, unspecified (9) DVT prophylaxis Current Visit: Yes Status: Acute Assessment and plan: Heparin 5000 units SC BID - Time Spent With Patient Total time spent is greater than 50% in coordination of care (as documented) at patient's floor/unit and/or counseling patient: Greater than 35 minutes <Shahram Talley T - Last Filed: 11/21/17 22:08> Date of Encounter: 11/21/17 Internal Medicine - H&P: HPI History of present illness: Ms. Hernandez is a 57 year old female All Systems PM: A 10-system review of systems was performed and is negative for pertinent findings except as documented above in the HPI. - Constitutional Vitals: Temp Pulse Resp BP Pulse Ox 97.9 F 88 14 135/84 96 11/21/17 18:47 11/21/17 18:47 11/21/17 18:47 11/21/17 18:47 11/21/17 18:47 Internal Med - H&P Results - Labs CBC & Chem 7: 11/20/17 13:30 11/20/17 13:30 Labs: Cardiac Enzymes 11/20/17 11/21/17 Range/Units 21:47 01:20 Troponin I < 0.03 < 0.03 (< 0.04) ng/mL Urine 11/20/17 Range/Units 23:18 Urine Color Yellow (Yellow) Urine Clarity Clear (Clear) Urine pH 7.0 (5.0-8.0) pH Units Ur Specific [place] 1.017 (1.010-1.025) Urine Protein Negative (Neg-Trace) mg/dL Urine Glucose (UA) Normal (Normal) mg/dL - Impressions ITS Impressions Brain MRI 11/20/17 16:33 IMPRESSION: 1. Leptomeningeal enhancement underlying cortical signal abnormality involving the high posterior left frontal lobe with a 2nd tiny focus of abnormal enhancement and T2/FLAIR hyperintensity in the vermis. Differential diagnostic considerations include infectious leptomeningitis or leptomeningeal carcinomatosis given history of metastatic cancer. Correlation with CSF analysis is advised. 2. No evidence of acute infarct, hemorrhage, or mass effect. 3. Nonspecific right parietal scalp swelling. D/ / Rudolph Kingsley / Rudolph Kingsley Interpreting Provider: Rudolph Kingsley Echocardiogram 11/20/17 17:27 Impressions: LVEF 60%. Mild left ventricular diastolic dysfunction. Normal right ventricular structure and function. Mild tricuspid regurgitation. No pulmonary hypertension by TR gradient. IVC is not well visualized. Proximal ascending aorta not well visualized. Left Ventricular Wall Motion: Rest Echo Findings All wall segments showed normal motion. Findings: Study Quality * Technically adequate exam. ECG Findings * Normal sinus rhythm. Left Ventricle * LVEF 60%. * Normal LV chamber size, wall thickness and function. * Mild left ventricular diastolic dysfunction. Right Ventricle * Normal right ventricular structure and function. Left Atrium * Normal left atrial size. Right Atrium * Normal right atrial size. Mitral Valve * Normal mitral valve structure. * No mitral stenosis. * No mitral regurgitation. Aortic Valve * No aortic regurgitation. * Aortic valve not well visualized. * No aortic stenosis. Tricuspid Valve * Normal tricuspid valve structure. * Mild tricuspid regurgitation. Pulmonic Valve * Pulmonic valve is not well visualized. * No pulmonic stenosis. * No pulmonic regurgitation. Pulmonary Artery * Pulmonary artery not well visualized. Aorta * Normally sized aortic root. * Proximal ascending aorta not well visualized. Pericardium * There is no pericardial effusion present. Interatrial Septum * Interatrial septum not well evaluated. IVC * The IVC is not well evaluated. - Attending Attestation The patient was independently examined and her records, labs and tests reviewed. I agree with the [employer] AIDE's A&P and agree she needs further neuroimaging due to her exam findings in light of her metastatic colon cancer. - Assessment and plan (1) Colon cancer metastasized to lung Current Visit: Yes Status: Chronic (2) Colon cancer metastasized to liver Current Visit: Yes Status: Chronic (3) Essential hypertension Current Visit: Yes Status: Chronic (4) DVT prophylaxis Current Visit: Yes Status: Acute (5) Fall Current Visit: Yes Status: Acute Qualifiers: Encounter type: initial encounter Qualified Code(s): W19.XXXA - Unspecified fall, initial encounter (6) Vertigo Current Visit: Yes Status: Suspected (7) Unable to ambulate Current Visit: Yes Status: Acute (8) Bladder cancer Current Visit: Yes Status: Chronic Qualifiers: Bladder location: unspecified site Qualified Code(s): C67.9 - Malignant neoplasm of bladder, unspecified (9) Dizziness Current Visit: Yes Status: Acute - Time Spent With Patient Total time spent is greater than 50% in coordination of care (as documented) at patient's floor/unit and/or counseling patient:
[2017-11-20] MEDS ORDERED: *HR* Metoprolol 5 MG/5 ML VIAL IVP PRN (16:59)
--- NOTE | 2017-11-20 17:29 | Electrocardiograph Report ---
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
[2017-11-20] MEDS: *HR* OxyCODONE Immed Rel 5 MG TABLET PO PRN (17:59)
[2017-11-20] MEDS: *HR* Heparin 5,000 UNIT/ML VIAL SQ SCH (19:22)
[2017-11-20] MEDS: Doxycycline 100 MG CAPSULE PO SCH (21:43)
[2017-11-20] MEDS: *HR* FentaNYL PATCH 25 MCG PATCH TD SCH (21:44)
[2017-11-20] MEDS: Pregabalin 50 MG CAPSULE PO SCH (21:44)
[2017-11-20] MEDS: [UNRECOGNIZED DRUG - OTHER] PO SCH (21:45)
--- NOTE | 2017-11-20 21:59 | Event Note ---
Date of Encounter: 11/20/17 Time of Encounter: 21:57 Mri results as follows 1. Leptomeningeal enhancement underlying cortical signal abnormality involving the high posterior left frontal lobe with a 2nd tiny focus of abnormal enhancement and T2/FLAIR hyperintensity in the vermis. Differential diagnostic considerations include infectious leptomeningitis or leptomeningeal carcinomatosis given history of metastatic cancer. Correlation with CSF analysis is advised. 2. No evidence of acute infarct, hemorrhage, or mass effect. 3. Nonspecific right parietal scalp swelling. Findings are concerning for Leptomeningitis vs leptomeningeal carcinomatosis -Consult oncology for further evaluation and recommendation; determine the need for ID cx and lumbar puncture vs outpatient PET scan -Day team to call consult
[2017-11-20 23:31] LABS: Bilirubin,Urine Negative (Negative); Blood,Urine Negative (Negative); Clarity,Urine Clear (Clear); Color,Urine Yellow (Yellow); Glucose,Urine (UA) Normal (Normal); Ketones,Urine Negative (Negative); Leukocyte Esterase,Urine Trace (Negative); Nitrite,Urine Negative (Negative); Protein,Urine Negative (Neg-Trace); Specific Gravity,Urine 1.017 (1.010-1.025); Urobilinogen,Urine Normal (Normal)
[2017-11-20 23:33] LABS: Bacteria,Urine None Seen per hpf (None-Few); Hyaline Casts,Urine None Seen per lpf (None-Few); Squamous Epithelial Cell,Urine Many per lpf (None-Few)
[2017-11-21 01:45] LABS: Amphetamine Screen,Urine Negative ng/mL (Cutoff=1000); Barbiturate Screen,Urine Negative ng/mL (Cutoff=200); Benzodiazepines Screen,Urine Negative ng/mL (Cutoff=200); Cannabinoid Screen,Urine Negative ng/mL (Cutoff = 50); Cocaine Screen,Urine Negative ng/mL (Cutoff= 300); Opiate Screen,Urine Negative ng/mL (Cutoff=300); Phencyclidine Screen,Urine Negative ng/mL (Cutoff=25)
[2017-11-21] MEDS: *HR* Heparin 5,000 UNIT/ML VIAL SQ SCH ×2 (05:33→18:36)
[2017-11-21] MEDS ORDERED: Acyclovir 200 MG CAPSULE PO SCH (09:00)
[2017-11-21] MEDS: FLUoxetine 20 MG CAPSULE PO SCH (09:24)
[2017-11-21] MEDS: amLODIPine 5 MG TABLET PO SCH (09:24)
[2017-11-21] MEDS: Sennosides 8.6 MG TABLET PO SCH (09:24)
[2017-11-21] MEDS: Lisinopril 20 MG TABLET PO SCH (09:25)
[2017-11-21] MEDS: Pregabalin 50 MG CAPSULE PO SCH ×3 (09:25→20:47)
[2017-11-21] MEDS: [UNRECOGNIZED DRUG - OTHER] PO SCH (09:25)
[2017-11-21 11:19] LABS: INR 1.1; Prothrombin Time 12.3 Seconds (9.4-12.1)
[2017-11-21] MEDS ORDERED: Ampicillin 1,000 MG in 0.9 % Sodium Chloride Mini Bag 100 ML IVPB SCH (12:00)
[2017-11-21] MEDS: *HR* OxyCODONE Immed Rel 5 MG TABLET PO PRN ×2 (12:29→20:47)
[2017-11-21] MEDS: 0.9 % Sodium Chloride 1,000 ML IVC SCH ×2 (12:31→13:44)
--- NOTE | 2017-11-21 12:45 | Internal Med Progress Note ---
Date of Encounter: 11/21/17 Time of Encounter: 12:05 - Assessment and plan (1) Colon cancer metastasized to lung Current Visit: Yes Status: Chronic Assessment and plan: onc darius noted, continue palliative chemo as outpatient (2) Colon cancer metastasized to liver Current Visit: Yes Status: Chronic Assessment and plan: H/o colon cancer with metastasis to the liver, and lungs. 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 Maradiaga Patient is planned for radiation on Friday 11/24 Continue supportive care for now IVF hydration EKG is non-ischemic ECHO noted for mild LVDD, otherwise unremarkable carotid doppler is negative PTOT eval is pending Qualifiers: Encounter type: initial encounter Qualified Code(s): W19.XXXA - Unspecified fall, initial encounter (6) Vertigo Current Visit: Yes Status: Suspected Assessment and plan: as above (7) Unable to ambulate Current Visit: Yes Status: Acute Assessment and plan: The patient fell today d/t dizziness resulting in her hitting her head. She is now reporting that she becomes severely dizzy with movement and is unable to ambulate. PTOT eval (8) Bladder cancer Current Visit: Yes Status: Chronic Assessment and plan: H/O bladder cancer. 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 This provider had earlier ordered an LP for cytology and cell count as well as empiric antibiotics According to the patient and RN, at time of review, oncologist is definitely sure this is Brain mets and has cancelled with orders, agree with plan, patient is agreeable Patient is still significantly dizzy and unable to sit up from a laying down position without feeling dizsy and headaches - Constitutional Vitals: Temp Pulse Resp BP Pulse Ox 97.7 F 81 16 135/84 97 11/21/17 10:34 11/21/17 10:34 11/21/17 10:34 11/21/17 10:34 11/21/17 10:34 General appearance: Present: cooperative, A&O X 3, no acute distress, obese, answers questions appropriately - Head Head exam: Present: atraumatic (alopecia) - Eye Eye exam: Present: PERRL, conjuntiva pink, sclera anicteric. Absent: nystagmus - Neck Neck exam general surgery: Present: supple, trachea midline. Absent: lymphadenopathy, nuchal rigidity - Respiratory Respiratory exam: Present: CTAB. Absent: accessory muscle use, rales, rhonchi, wheezes - Cardiovascular Cardiovascular exam: Present: RRR, +S1, +S2. Absent: diastolic murmur, gallop, rubs, systolic murmur - GI/Abdominal GI/Abdominal exam: Present: normal bowel sounds, soft, no peritoneal signs. Absent: distended, tenderness - Extremities Exam Extremities exam: Present: warm, radial pulses palpable and symmetrical. Absent : calf tenderness, cyanotic, pedal edema - Neurological Exam Neurological exam: Present: alert, CN II-XII intact, oriented X3, no focal deficits. Absent: pronater drift, facial droop, speech deficit - Skin Skin exam: Present: dry, intact Internal Medicine: Result - Labs CBC & Chem 7: 11/20/17 13:30 11/20/17 13:30 Labs: Cardiac Enzymes 11/20/17 11/21/17 Range/Units 21:47 01:20 Troponin I < 0.03 < 0.03 (< 0.04) ng/mL Urine 11/20/17 Range/Units 23:18 Urine Color Yellow (Yellow) Urine Clarity Clear (Clear) Urine pH 7.0 (5.0-8.0) pH Units Ur Specific [place] 1.017 (1.010-1.025) Urine Protein Negative (Neg-Trace) mg/dL Urine Glucose (UA) Normal (Normal) mg/dL - ABG Interpretation ABG results: PT/INR, D-dimer PT 12.3 Seconds (9.4-12.1) H 11/21/17 08:37 - Impressions Impressions Brain MRI 11/20/17 16:33 IMPRESSION: 1. Leptomeningeal enhancement underlying cortical signal abnormality involving the high posterior left frontal lobe with a 2nd tiny focus of abnormal enhancement and T2/FLAIR hyperintensity in the vermis. Differential diagnostic considerations include infectious leptomeningitis or leptomeningeal carcinomatosis given history of metastatic cancer. Correlation with CSF analysis is advised. 2. No evidence of acute infarct, hemorrhage, or mass effect. 3. Nonspecific right parietal scalp swelling. D/ / Rudolph Kingsley / Rudolph Kingsley Interpreting Provider: Rudolph Kingsley Echocardiogram 11/20/17 17:27 Impressions: LVEF 60%. Mild left ventricular diastolic dysfunction. Normal right ventricular structure and function. Mild tricuspid regurgitation. No pulmonary hypertension by TR gradient. IVC is not well visualized. Proximal ascending aorta not well visualized. Left Ventricular Wall Motion: Rest Echo Findings All wall segments showed normal motion. Findings: Study Quality * Technically adequate exam. ECG Findings * Normal sinus rhythm. Left Ventricle * LVEF 60%. * Normal LV chamber size, wall thickness and function. * Mild left ventricular diastolic dysfunction. Right Ventricle * Normal right ventricular structure and function. Left Atrium * Normal left atrial size. Right Atrium * Normal right atrial size. Mitral Valve * Normal mitral valve structure. * No mitral stenosis. * No mitral regurgitation. Aortic Valve * No aortic regurgitation. * Aortic valve not well visualized. * No aortic stenosis. Tricuspid Valve * Normal tricuspid valve structure. * Mild tricuspid regurgitation. Pulmonic Valve * Pulmonic valve is not well visualized. * No pulmonic stenosis. * No pulmonic regurgitation. Pulmonary Artery * Pulmonary artery not well visualized. Aorta * Normally sized aortic root. * Proximal ascending aorta not well visualized. Pericardium * There is no pericardial effusion present. Interatrial Septum * Interatrial septum not well evaluated. IVC * The IVC is not well evaluated. Consult Discharge Plan - Plan Referrals: Marcell Simon DO [Primary Care Provider] -
--- NOTE | 2017-11-21 14:35 | Oncology Inp Consult Note ---
<Oliva Montes De Oca L - Last Filed: 11/21/17 17:35> Date of Encounter: 11/21/17 Time of Encounter: 11:00 Assessment and Plan (1) Colon cancer metastasized to liver Status: Chronic Assessment and plan: MRI brain reveals leptomeningeal enhancement underlying cortical signal abnormality involving the high posterior left frontal lobe with a 2nd tiny focus of abnormal enhancement and T2/FLAIR hyperintensity in the vermis, No evidence of acute infarct, hemorrhage, or mass effect. Discussed MRI findings with patient and patients today at bedside including information on prognosis and general progression of leptomeningeal disease, an ominous sign of advancing malignancy. No need for lumbar puncture. May discontinue ATB therapy at this time. She has no infectious sign/symptoms, afebrile, no leukocytosis. She does report headache , blurry vision and dizziness. She denies nausea, vomiting, and neck pain or stiffness. No signs of AMS. She reports that her symptoms are improving with steroids. She is understandably upset and grieving following discussion regarding MRI results. Verbal support given. Plan: Increased decadron dose to 4 mg Q6 hours. Please continue at discharge. She has appointment scheduled for consultation with radiation oncology with Dr. العلي on Friday, November 24 at 1 pm. If she is still inpatient during this time she will need transported to the cancer center for her consultation. She will continue to follow up with Dr. Duggan, treating oncologist. Following radiation, she will likely plan to continue with pursuit of chemotherapy treatment with already planned regimen of irinotecan, panitumumab and vemurafenib. Following discussion today, she does state her wish to take a few vacations this summer and questions whether this would be possible during her chemotherapy treatments. Recommended she continue to discuss options for further treatment at upcoming appointments with Dr. Duggan, if radiation helps to control her symptoms and she wishes to decline chemo for sometime to be able to take vacations and spend quality time with her family this would understandable. Please refer to Dr. Gomez's attestation below for additional details. Plan outlined in detail with Dr. Gomez who agrees with POC as detailed above. - Data of Consult Patient: new to practice Consult date: 11/21/17 Requesting Physician: Steve Ramirez MD Primary Care Provider: Jennifer Fortune - Consult Narrative Reason for consult: Metastatic colon adenocarcinoma History of present illness: Ms. Hernandez is a 57 year old female with oncologic history significant for widely metastatic adenocarcinoma the colon. Patient has known pulmonary as well as liver involvement. Recent bladder biopsy indicates bladder involvement. She is heavily pretreated and most recently has been placed on dose-attenuated irinotecan and Avastin. CT imaging 10/29/17 with stable disease radiographically. However, she has now had 2 episodes of Jaundice secondary to what appears to be malignant biliary obstruction. There has been concern that she has intrabiliary disease progression not evident on CT scan. In addition, CEAs increased from 5.9 in January 2017 to 31.4 in September. At her most recent follow up on 11/14/[address] Duggan, treating oncologist, she was planned to stop irinotecan/avastin and start irinotecan, panitumumab and vemurafenib given her biochemical evidence of disease progression. She was planned to return to clinic within 2 weeks time to initiate therapy. She presented to [facility] ED on 11/20/2017 following a witnessed fall preceded by neurological symptoms of dizziness and vertigo. CT head and cervical spine negative for acute abnormality. MRI brain reveals leptomeningeal enhancement underlying cortical signal abnormality involving the high posterior left frontal lobe with a 2nd tiny focus of abnormal enhancement and T2/FLAIR hyperintensity in the vermis, No evidence of acute infarct, hemorrhage, or mass effect. Past Med Surg Social Fam HX - Past Medical History Medical history: arthritis, cancer, fibromyalgia, GERD, hyperlipidemia, hypertension Psychiatric history: depression - Past Surgical History Surgical History: cancer surgery - Social History Smoking Status: Former smoker Smokeless Tobacco Status: No Alcohol use: rarely Drug use: none - Family History Mother Hx Family Cardiac Disorders: Yes (CAD) Hx Family Endocrine Disorder: Yes (DM) Medications and Allergies Lidocaine/Prilocaine CREAM [Emla] 5 gm TP DAILY #1 tube 10/19/15 [Rx] LORazepam [Ativan] 1 mg PO Q6H PRN #60 tablet 03/14/17 [Rx] Ondansetron [Zofran] 8 mg PO Q8HR PRN #90 tablet 03/14/17 [Rx] Prochlorperazine Maleate [Compazine] 10 mg PO Q6HR PRN #120 tablet 03/14/17 [Rx] FLUoxetine HCl [Prozac] 40 mg PO DAILY #30 capsule 07/04/17 [Rx] Lisinopril [Zestril] 20 mg PO DAILY #30 tablet 07/04/17 [Rx] Pantoprazole Sodium [Protonix] 20 mg PO DAILY #30 tab 07/04/17 [Rx] diazePAM [Valium] 5 mg PO Q6H PRN #10 tablet 08/28/17 [Rx] Pregabalin [Lyrica] 50 mg PO TID 30 Days #90 capsule 09/18/17 [Rx] Amlodipine Besylate 10 mg PO DAILY 11/13/17 [History] Docusate Sodium [Dok] 100 mg PO BID 11/13/17 [History] Doxycycline 100 mg PO BID #60 capsule 11/13/17 [Rx] FentaNYL PATCH [Duragesic] 25 mcg TD Q72H 30 Days #10 patch.td72 11/13/17 [Rx] Oxycodone HCl [Oxaydo] 5 - 10 mg PO Q6H PRN 15 Days #120 tablet.orl 11/13/17 [Rx ] Sennosides [Senna] 8.6 mg PO DAILY 11/13/17 [History] Vemurafenib [Zelboraf] 960 mg PO BID #240 tablet 11/14/17 [Rx] Acyclovir [Zovirax] 400 mg PO DAILY #30 tablet 11/28/17 [Rx] 3 Allergy/AdvReac Type Severity Reaction Status Date / Time adhesive tape AdvReac Rash Verified 11/27/17 09:27 Oxycodone [From Tylox] AdvReac Vomiting Verified 11/27/17 09:27 rivaroxaban [From Xarelto] AdvReac See Verified 11/27/17 09:27 Comments Constitutional: Present: fatigue, weakness. Absent: anorexia, chills, fever(s) , malaise, weight loss Additional comments: fall prior to presentation Eyes: Present: blurry vision. Absent: diplopia Nose, mouth and throat: Absent: dysphagia Cardiovascular: Absent: chest pain, irregular heart rhythm Respiratory: Present: dyspnea on exertion. Absent: cough Gastrointestinal: Absent: abdominal pain, change in bowel habits, nausea, vomiting Genitourinary: Absent: dysuria Musculoskeletal: Present: muscle weakness. Absent: neck pain, numbness, stiffness, tingling Integumentary: Absent: wounds Neurological: Absent: confusion Psychiatric: Absent: change in appetite Hematologic/Lymphatic: Present: as per HPI Oncology - Exam - Constitutional Vitals: Temp Pulse Resp BP Pulse Ox 97.7 F 81 16 135/84 97 11/21/17 10:34 11/21/17 10:34 11/21/17 10:34 11/21/17 10:34 11/21/17 10:34 General appearance: cooperative, no acute distress, no febrile - Head Head exam: Present: atraumatic - Eye Eye exam: Present: PERRL. Absent: nystagmus - ENT ENT exam: Present: mucous membranes moist - Respiratory Respiratory exam: Present: CTAB. Absent: respiratory distress - Cardiovascular Cardiovascular exam: Present: RRR, +S1, +S2 - GI/Abdominal GI/Abdominal exam: Present: normal bowel sounds, soft. Absent: tenderness - Extremities Exam Extremities exam: Present: pedal edema. Absent: calf tenderness - Neurological Exam Neurological exam: Present: alert, oriented X3, no focal deficits, strengths equal and symetr throughout - Skin Skin exam: Present: dry, intact, normal color, warm Oncology - Results Labs: Cardiac Enzymes 11/20/17 11/21/17 Range/Units 21:47 01:20 Troponin I < 0.03 < 0.03 (< 0.04) ng/mL Urine 11/20/17 Range/Units 23:18 Urine Color Yellow (Yellow) Urine Clarity Clear (Clear) Urine pH 7.0 (5.0-8.0) pH Units Ur Specific Bliss 1.017 (1.010-1.025) Urine Protein Negative (Neg-Trace) mg/dL Urine Glucose (UA) Normal (Normal) mg/dL Consult Discharge Plan - Plan Instructions: Diverticulitis (DC), Urinary Tract Infection in Women (DC), Chronic Hypertension (DC), Fall Prevention (DC) Additional Instructions: follow up with Oncology Referrals: Mervat Joyner MD [Partnered Physician] - 12/01/17 1:30 pm <Patrick Gomez - Last Filed: 12/01/17 13:50> Date of Encounter: 11/21/17 - Data of Consult Requesting Physician: Steve Ramirez MD Primary Care Provider: Jennifer Fortune - Consult Narrative History of present illness: Ms. Hernandez is a 57 year old female Oncology - Exam - Constitutional Vitals: Temp Pulse Resp BP Pulse Ox 97.8 F 63 14 166/93 97 11/25/17 15:46 11/25/17 15:46 11/25/17 15:46 11/25/17 15:46 11/25/17 15:46 - Attending Attestation seen and examined patient and agree with assessment and plkan. Patient almost certainly has leptomeningeal involvement of her disease. Plan for radiation. Increase steroids. NBo indication of infectious etiology at this time. No need for LP or Abx.
[2017-11-21] MEDS: Doxycycline 100 MG CAPSULE PO SCH (20:47)
[2017-11-22] MEDS: 0.9 % Sodium Chloride 1,000 ML IVC SCH ×2 (03:47→18:02)
[2017-11-22] MEDS: *HR* OxyCODONE Immed Rel 5 MG TABLET PO PRN ×3 (03:48→16:04)
[2017-11-22 04:24] LABS: Basophils % 0.2 %; Hematocrit 34.9 % (35.3-44.9); Hemoglobin 11.5 g/dL (11.5-15.4); Immature Granulocytes % 0.5 % (0-4); Lymphocytes # 1.4 K/mcL (0.6-4.6); Mean Corpuscular Hemoglobin 29.3 pg (28.0-33.3); Mean Platelet Volume 9.6 fL (9.4-12.4); Monocytes # 0.4 K/mcL (0.0-1.3); Monocytes % 4.5 %; Neutrophils # 6.8 K/mcL (1.6-8.9); Platelet Count 219 K/mcL (140-400); Red Blood Count 3.92 M/mcL (3.82-4.97); Red Cell Distribution Width 15.5 % (11.5-14.5); Segmented Neutrophils % 78.8 %
[2017-11-22 04:43] LABS: BUN/Creatinine Ratio 29 (6-26); Blood Urea Nitrogen 17 mg/dL (6-20); Calcium 9.4 mg/dL (8.6-10.3); Carbon Dioxide 25 mEq/L (23-29); Chloride 107 mEq/L (98-107); Glucose 154 mg/dL (70-105); Osmolality,Calculated 293 (280-300); Sodium 139 mEq/L (136-145); eGFR For African Americans > 60 (> 60); eGFR For Non-African Americans > 60 (> 60)
[2017-11-22] MEDS: *HR* Heparin 5,000 UNIT/ML VIAL SQ SCH ×2 (06:24→17:57)
[2017-11-22] MEDS: amLODIPine 5 MG TABLET PO SCH (09:58)
[2017-11-22] MEDS: Doxycycline 100 MG CAPSULE PO SCH ×2 (09:59→21:19)
[2017-11-22] MEDS: Sennosides 8.6 MG TABLET PO SCH (09:59)
[2017-11-22] MEDS: FLUoxetine 20 MG CAPSULE PO SCH (09:59)
[2017-11-22] MEDS: Lisinopril 20 MG TABLET PO SCH (09:59)
[2017-11-22] MEDS: Pregabalin 50 MG CAPSULE PO SCH ×3 (09:59→21:19)
--- NOTE | 2017-11-22 13:41 | Internal Med Progress Note ---
Date of Encounter: 11/22/17 Time of Encounter: 13:40 - Assessment and plan (1) Colon cancer metastasized to lung Current Visit: Yes Status: Chronic Assessment and plan: onc darius noted, continue palliative chemo as outpatient (2) Colon cancer metastasized to liver Current Visit: Yes Status: Chronic Assessment and plan: H/o colon cancer with metastasis to the liver, and lungs. 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 Maradiaga Patient is planned for radiation on Friday 11/24 Continue supportive care for now IVF hydration, continue same EKG is non-ischemic ECHO noted for mild LVDD, otherwise unremarkable carotid doppler is negative PTOT eval is pending Qualifiers: Encounter type: initial encounter Qualified Code(s): W19.XXXA - Unspecified fall, initial encounter (6) Vertigo Current Visit: Yes Status: Suspected Assessment and plan: as above (7) Unable to ambulate Current Visit: Yes Status: Acute Assessment and plan: The patient fell prior to admission. She is now reporting that she becomes severely dizzy with movement and is unable to ambulate. PTOT eval (8) Bladder cancer Current Visit: Yes Status: Chronic Assessment and plan: H/O bladder cancer. 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 This provider had earlier ordered an LP for cytology and cell count as well as empiric antibiotics According to the patient and RN, at time of review, oncologist is definitely sure this is Brain mets and has cancelled with orders, agree with plan, patient is agreeable Patient is still significantly dizzy and unable to sit up from a laying down position without feeling dizsy and headaches Orthostatics positive, on IVF, continue same Pending PTOT eval - Constitutional Vitals: Temp Pulse Resp BP Pulse Ox 97.8 F 67 18 163/98 98 11/22/17 10:24 11/22/17 10:24 11/22/17 10:24 11/22/17 10:24 11/22/17 10:24 General appearance: Present: cooperative, A&O X 3, no acute distress, obese, answers questions appropriately - Head Head exam: Present: atraumatic (alopecia), normocephalic - Eye Eye exam: Present: PERRL, conjuntiva pink, sclera anicteric Pupils: Present: PERRL - Neck Neck exam general surgery: Present: supple, trachea midline. Absent: lymphadenopathy - Respiratory Respiratory exam: Present: CTAB. Absent: accessory muscle use, rales, rhonchi, wheezes - Cardiovascular Cardiovascular exam: Present: RRR, +S1, +S2. Absent: diastolic murmur, gallop, rubs, systolic murmur - GI/Abdominal GI/Abdominal exam: Present: normal bowel sounds, soft, no peritoneal signs. Absent: distended, tenderness - Extremities Exam Extremities exam: Present: warm, radial pulses palpable and symmetrical. Absent : calf tenderness, cyanotic, pedal edema - Neurological Exam Neurological exam: Present: alert, CN II-XII intact, oriented X3, no focal deficits. Absent: pronater drift, facial droop, speech deficit - Skin Skin exam: Present: dry, intact Internal Medicine: Result - Labs CBC & Chem 7: 11/22/17 04:00 11/22/17 04:00 Labs: Short CBC 11/22/17 Range/Units 04:00 WBC 8.6 (4.3-11.1) K/mcL Hgb 11.5 (11.5-15.4) g/dL Hct 34.9 L (35.3-44.9) % Plt Count 219 (140-400) K/mcL Neutrophils # 6.8 (1.6-8.9) K/mcL BMP 11/22/17 04:00 Sodium 139 Potassium 4.0 Chloride 107 Carbon Dioxide 25 BUN 17 Creatinine 0.58 L Glucose 154 H Calcium 9.4 - ABG Interpretation ABG results: PT/INR, D-dimer PT 12.3 Seconds (9.4-12.1) H 11/21/17 08:37 - VTE Documentation of Mechanical Device: Intermittent pneumatic compression device Consult Discharge Plan - Plan Referrals: Marcell Simon DO [Primary Care Provider] -
[2017-11-23] MEDS ORDERED: hydrALAZINE 10 MG TABLET PO PRN (00:17)
[2017-11-23] MEDS: *HR* OxyCODONE Immed Rel 5 MG TABLET PO PRN ×3 (00:19→17:44)
[2017-11-23] MEDS: MORPHINE SUL Oral CONC 10 MG/0.5 ML ORAL.SYG SL PRN ×2 (02:36→11:20)
[2017-11-23] MEDS: Ondansetron ODT 4 MG TAB.RAPDIS SL PRN ×2 (02:36→08:57)
[2017-11-23] MEDS: *HR* Heparin 5,000 UNIT/ML VIAL SQ SCH ×2 (05:41→17:43)
[2017-11-23] MEDS: Sennosides 8.6 MG TABLET PO SCH (08:49)
[2017-11-23] MEDS: Doxycycline 100 MG CAPSULE PO SCH ×2 (08:49→21:23)
[2017-11-23] MEDS: Pregabalin 50 MG CAPSULE PO SCH ×3 (08:49→21:23)
[2017-11-23] MEDS: FLUoxetine 20 MG CAPSULE PO SCH (08:50)
[2017-11-23] MEDS: Lisinopril 20 MG TABLET PO SCH (08:50)
[2017-11-23] MEDS: amLODIPine 5 MG TABLET PO SCH (08:51)
[2017-11-23] MEDS: diazePAM 5 MG TABLET PO PRN (08:58)
--- NOTE | 2017-11-23 12:09 | Oncology Inp Progress Note ---
Date of Encounter: 11/23/17 Time of Encounter: 12:00 (1) Dizziness Current Visit: Yes Status: Acute Assessment and plan: Ms. Hernandez has newly identified leptomeningeal disease as well as a likely metastatic focus involving her firmness. This is likely the cause for dizziness. Continue Decadron is currently scheduled. She will receive me with Dr. العلي of radiation oncology tomorrow 1 PM to initiate radiation therapy. (2) Colon cancer Current Visit: No Status: Acute Assessment and plan: Ms. Hernandez has PRECISION HONER progression. In addition, I think she has evidence of intrabiliary disease progression based off recent ERCP at [facility]. I have already arranged for to transition her therapy to Irinotecan with Panitumumab as well as a BRAF inhibitor, vemurafenib. 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 I believe we have received drug assistance/coverage for this. We will initiate this therapy upon completion of her radiation therapy. Qualifiers: Colon location: unspecified part of colon Qualified Code(s): C18.9 - Malignant neoplasm of colon, unspecified Oncology: Subj Interval history: His heart is doing okay. She continues to have significant musculoskeletal aches and pains which are chronic. The fentanyl did help with these. Sleeping in the hospital but has compounded her pain. She still very dizzy when she sits up. There was orthostatic hypotension identified by the primary care team. She has received fluids for this. Physical therapy has been counseled today and will be seeing the patient tomorrow. She has an appointment with Dr. العلي of radiation oncology at 1 PM on Friday she has any nausea or vomiting at current. No headache blurred or double vision. - Constitutional Vitals: Vital Signs Temp Pulse Resp BP Pulse Ox 11/23/17 10:28 97.6 F 56 18 131/78 97 11/23/17 07:14 98.0 F 67 18 153/87 97 11/23/17 03:45 97.9 F 60 15 198/86 96 11/22/17 23:56 98.1 F 62 16 185/95 96 11/22/17 20:20 97.6 F 67 16 164/92 95 11/22/17 14:48 98.2 F 64 16 154/98 97 Intake and Output 11/23/17 11/23/1718 00:59 08:59 16:59 Intake Total 572 / 572 120 / 120 1240 / 1240 Output Total 250 / 250 250 / 250 0 / 0 Balance 322 / 322 -130 / -130 1240 / 1240 Intake: IV Fluids 212 / 212 1000 / 1000 0.9 % Sodium Chloride 1,000 ML 212 / 212 1000 / 1000 @ 75 mls/hr IVC .[id number] PRASHANT Rx #:[id number] Oral 360 / 360 120 / 120 240 / 240 Output: Urine 250 / 250 250 / 250 0 / 0 Other: Meal Breakfast Percent of Meal Consumed 65% # Voids 1 1 # Urine Diapers 1 Weight 90.4 kg Patient Weight 11/24/17 00:59 Weight 90.4 kg General appearance: cooperative, no acute distress - Head Head exam: Present: atraumatic, normal inspection, normocephalic - Eye Eye exam: Present: normal appearance, conjuntiva pink, sclera anicteric - ENT ENT exam: Present: mucous membranes moist, normal external ear exam, normal oropharynx - Neck Neck exam: Present: full ROM, normal inspection - Respiratory Respiratory exam: Present: CTAB - Cardiovascular Cardiovascular exam: Present: RRR - GI/Abdominal GI/Abdominal exam: Present: normal bowel sounds, soft - Extremities Exam Extremities exam: Present: normal inspection, pedal edema - Neurological Exam Neurological exam: Present: alert, CN II-XII intact, oriented X3, no focal deficits Oncology: Obj Data - Labs CBC & Chem 7: 11/22/17 04:00 11/22/17 04:00 - ABG Interpretation ABG results: PT/INR, D-dimer PT 12.3 Seconds (9.4-12.1) H 11/21/17 08:37 Consult Discharge Plan - Plan Referrals: Marcell Simon DO [Primary Care Provider] -
--- NOTE | 2017-11-23 12:28 | Internal Med Progress Note ---
Date of Encounter: 11/23/17 Time of Encounter: 11:25 - Assessment and plan (1) Colon cancer metastasized to lung Current Visit: Yes Status: Chronic Assessment and plan: onc darius noted, continue palliative chemo as outpatient (2) Colon cancer metastasized to liver Current Visit: Yes Status: Chronic Assessment and plan: H/o colon cancer with metastasis to the liver, and lungs. 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 Maradiaga Patient is planned for radiation on Friday 11/24 Continue supportive care for now EKG is non-ischemic ECHO noted for mild LVDD, otherwise unremarkable carotid doppler is negative PTOT eval is pending Qualifiers: Encounter type: initial encounter Qualified Code(s): W19.XXXA - Unspecified fall, initial encounter (6) Vertigo Current Visit: Yes Status: Suspected Assessment and plan: as above (7) Unable to ambulate Current Visit: Yes Status: Acute Assessment and plan: The patient fell prior to admission. She is now reporting that she becomes severely dizzy with movement and is unable to ambulate. PTOT eval (8) Bladder cancer Current Visit: Yes Status: Chronic Assessment and plan: H/O bladder cancer. 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 Absent: lymphadenopathy - Respiratory Respiratory exam: Present: CTAB. Absent: accessory muscle use, rales, rhonchi, wheezes - Cardiovascular Cardiovascular exam: Present: RRR, +S1, +S2. Absent: diastolic murmur, gallop, rubs, systolic murmur - GI/Abdominal GI/Abdominal exam: Present: normal bowel sounds, soft, no peritoneal signs. Absent: distended, tenderness - Extremities Exam Extremities exam: Present: warm, radial pulses palpable and symmetrical. Absent : calf tenderness, cyanotic, pedal edema - Neurological Exam Neurological exam: Present: alert, CN II-XII intact, oriented X3, no focal deficits. Absent: pronater drift, facial droop, speech deficit - Skin Skin exam: Present: dry, intact Internal Medicine: Result - Labs CBC & Chem 7: 11/22/17 04:00 11/22/17 04:00 - ABG Interpretation ABG results: PT/INR, D-dimer PT 12.3 Seconds (9.4-12.1) H 11/21/17 08:37 - VTE Documentation of Mechanical Device: Intermittent pneumatic compression device Consult Discharge Plan - Plan Referrals: Marcell Simon DO [Primary Care Provider] -
[2017-11-23] MEDS: *HR* FentaNYL PATCH 25 MCG PATCH TD SCH (16:28)
[2017-11-24] MEDS: MORPHINE SUL Oral CONC 10 MG/0.5 ML ORAL.SYG SL PRN ×2 (00:42→09:33)
[2017-11-24] MEDS: Ondansetron ODT 4 MG TAB.RAPDIS SL PRN (00:42)
[2017-11-24] MEDS: *HR* Heparin 5,000 UNIT/ML VIAL SQ SCH ×2 (05:48→20:11)
[2017-11-24] MEDS: *HR* OxyCODONE Immed Rel 5 MG TABLET PO PRN ×2 (06:22→16:59)
[2017-11-24] MEDS: amLODIPine 5 MG TABLET PO SCH (08:57)
[2017-11-24] MEDS: Pregabalin 50 MG CAPSULE PO SCH ×3 (08:57→20:11)
[2017-11-24] MEDS: Lisinopril 20 MG TABLET PO SCH (08:57)
[2017-11-24] MEDS: FLUoxetine 20 MG CAPSULE PO SCH (08:57)
[2017-11-24] MEDS: Sennosides 8.6 MG TABLET PO SCH (08:58)
[2017-11-24] MEDS: Doxycycline 100 MG CAPSULE PO SCH ×2 (08:58→20:10)
--- NOTE | 2017-11-24 13:35 | Internal Med Progress Note ---
<Marcell Beebe - Last Filed: 11/24/17 13:31> Date of Encounter: 11/24/17 Time of Encounter: 08:30 - Assessment and plan (1) Colon cancer metastasized to liver Current Visit: Yes Status: Chronic Assessment and plan: H/o colon cancer with metastasis to the liver, and lungs. Additionally has bladder cancer but it is unclear whether or not this is a primary cancer or peritoneal metastasis - Oncology following, possible palliative radiation today. (2) Colon cancer metastasized to lung Current Visit: Yes Status: Chronic Assessment and plan: As discussed above. (3) Bladder cancer Current Visit: Yes Status: Chronic Assessment and plan: significant hx of bladder cancer - with current metastatic colon cancer unsure if this is primary or secondary. 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 Maradiaga EKG is non-ischemic ECHO noted for mild LVDD, otherwise unremarkable carotid doppler is negative Plan: Continue supportive care. - Possible radiation therapy today. - PT/OT eval is still pending (5) Essential hypertension Current Visit: Yes Status: Chronic Assessment and plan: continue current meds (6) DVT prophylaxis Current Visit: Yes Status: Acute Assessment and plan: Heparin 5000 units SC BID - Time Spent With Patient Total time spent is greater than 50% in coordination of care (as documented) at patient's floor/unit and/or counseling patient: - Subjective Interval history: Ms. Hernandez 57 yo female seen and evaluated at patient bedside. She continues to have dizziness but denies any other concerns. She is awaiting evaluation from heme/oncology for possible radiation therapy. She denies any SOB, chest pain, abd pain, N/v/d/c or weakness in her extremities. She has no other complaints at this time. - Constitutional Vitals: Temp Pulse Resp BP Pulse Ox 97.6 F 51 18 147/84 97 11/24/17 10:37 11/24/17 10:37 11/24/17 10:37 11/24/17 10:37 11/24/17 10:37 General appearance: Present: cooperative, A&O X 3, no acute distress, obese, answers questions appropriately Exam: HEENT: NC/AT, mucous membranes moist Chest: symmetric correlating with respiratory effort which is nonlabored Resp: CTABL Cardiac: RRR, +S1, +S2 Abdominal: soft, nontender, + BS Extremities: symmetric bilateral, patient moving all 4 limbs spontaneously Internal Medicine: Result - Labs CBC & Chem 7: 11/22/17 04:00 11/22/17 04:00 - ABG Interpretation ABG results: PT/INR, D-dimer PT 12.3 Seconds (9.4-12.1) H 11/21/17 08:37 - VTE Documentation of Mechanical Device: Intermittent pneumatic compression device Consult Discharge Plan - Plan Referrals: Marcell Simon DO [Primary Care Provider] - <Steve Ramirez - Last Filed: 11/24/17 15:39> Date of Encounter: 11/24/17 - Assessment and plan (1) Colon cancer metastasized to lung Current Visit: Yes Status: Chronic (2) Colon cancer metastasized to liver Current Visit: Yes Status: Chronic (3) Essential hypertension Current Visit: Yes Status: Chronic (4) DVT prophylaxis Current Visit: Yes Status: Acute (5) Fall Current Visit: Yes Status: Acute Qualifiers: Encounter type: initial encounter Qualified Code(s): W19.XXXA - Unspecified fall, initial encounter (6) Vertigo Current Visit: Yes Status: Suspected (7) Unable to ambulate Current Visit: Yes Status: Acute (8) Bladder cancer Current Visit: Yes Status: Chronic Qualifiers: Bladder location: unspecified site Qualified Code(s): C67.9 - Malignant neoplasm of bladder, unspecified (9) Dizziness Current Visit: Yes Status: Acute - Time Spent With Patient Total time spent is greater than 50% in coordination of care (as documented) at patient's floor/unit and/or counseling patient: - Constitutional Vitals: Temp Pulse Resp BP Pulse Ox 97.6 F 51 18 147/84 97 11/24/17 10:37 11/24/17 10:37 11/24/17 10:37 11/24/17 10:37 11/24/17 10:37 Internal Medicine: Result - Labs CBC & Chem 7: 11/22/17 04:00 11/22/17 04:00 - ABG Interpretation ABG results: PT/INR, D-dimer PT 12.3 Seconds (9.4-12.1) H 11/21/17 08:37 - Attending Attestation Seen and examined at bedside independently Still symptomatic discussed with radoncologist-For LP with routine CSF work up as well as cytology. Also requested MRI f the cervical/thoracic/lumbar spine with and without contrast Other details is as in the resident physician's documentation
--- NOTE | 2017-11-24 14:11 | Rad Onc Consult Note ---
Radiation Oncology HPI - Oncology history Comments: Diagnosis: Metastatic adenocarcinoma of the colon Previous Treatment: 2009: Right hemicolectomy 10/2010: completed adjuvant FOLFOX for stage III colon cancer. 01/07/13: Right hepatectomy and partial left hepatectomy with hepatic artery infusion pump placement. 10/30/2014 - 12/26/2015: FOLFIRI + Avastin 01/2016 - 03/2016: FOLFIRI with Avastin 04/15/2016: Chemotherapy held for diverticulitis 04/24/2016 - 11/26/2016: FOLFIRI with Avastin 01/14/2017: Removal of hepatic artery infusion pump 02/24/20171: ERCP with stent placement 03/2017 - present: Restarted Irinotecan/Avastin 04/14/2017: TURBT (Invasive adenocarcinoma involving bladder mucosa and muscularis propria, differential diagnosis includes adenocarcinoma of the urinary bladder versus metastatic adenocarcinoma from GI tract) 05/07/2017: ERCP with stent exchange ([facility]) Date: 11/24/17 Primary Care Provider: Jennifer Fortune History of present illness: Mrs. Hernandez is a 57-year-old female who is seen in her hospital room today in consultation regarding her known diagnosis of metastatic colon cancer. She is previously known to me from prior evaluation for consideration of radiotherapy to her liver. She was last seen in 05/2018. She is currently admitted after feeling dizzy and falling at home. This occurred last . She reports continued dizziness at rest, worsened with sitting up. This is new for her. She notes a mild generalized headache. She reports that 2-3 days prior to her fall, she noted some paresthesia along the distribution of V2 on the right. She denies any changes in vision including loss of vision, diplopia. She denies other areas of weakness or numbness. She denies seizure. She denies dysphagia. She does report 3-4 months of worsening back pain which is new for her. She notes that this radiates into her right lower back. She has been seeing a chiropractor for this. MRI of the brain upon admission demonstrated leptomeningeal enhancement in the high posterior left frontal lobe with associated underlying cortical signal abnormality and a second tiny focus of abnormal enhancement in the vermis. Lumbar puncture was initially recommended and then canceled. She was recently admitted at [facility] for cholangitis and bacteremia. A malignant severe biliary stricture was noted at that time and a stent was placed. She did see dentistry at that point to where extraction of teeth 23, 24, and 25 is recommended due to underlying infection. An echo on 11/05 was noted to be negative for vegetations by report. Today, she is sitting comfortably in her bed. She denies any significant worsening or improvement since being admitted. She notes mild fatigue. Code Status: Full Code Past Medical History: fibromyalgia, hyperlipidemia, hypertension, malignancy Other History: Metastatic colon cancer. Mood disorder. Bursitis. Fibromylagia Surgical History: breast surgery, cholecystectomy, hysterectomy, other Hospitalization facilities, dates and reasons: Per surgeries. Pt. states went to the hospital Jul 09 and had a stent put in liver. 08/03- Liver infection. 11/02-[facility]d and liver infections Smoking Status: Former smoker Smokeless Tobacco Status: No Alcohol use: rarely Drug use: none Family History -Oncology: hypertension, diabetes Oncology - Medications Lidocaine/Prilocaine CREAM [Emla] 5 gm TP DAILY #1 tube 10/19/15 [Rx] Dexamethasone [Decadron] 4 mg PO DAILY #30 tablet 03/14/17 [Rx] LORazepam [Ativan] 1 mg PO Q6H PRN #60 tablet 03/14/17 [Rx] Ondansetron [Zofran] 8 mg PO Q8HR PRN #90 tablet 03/14/17 [Rx] Prochlorperazine Maleate [Compazine] 10 mg PO Q6HR PRN #120 tablet 03/14/17 [Rx] Acyclovir [Zovirax] 400 mg PO DAILY #30 tablet 04/15/17 [Rx] FLUoxetine HCl [Prozac] 40 mg PO DAILY #30 capsule 07/04/17 [Rx] Lisinopril [Zestril] 20 mg PO DAILY #30 tablet 07/04/17 [Rx] Pantoprazole Sodium [Protonix] 20 mg PO DAILY #30 tab 07/04/17 [Rx] diazePAM [Valium] 5 mg PO Q6H PRN #10 tablet 08/28/17 [Rx] Pregabalin [Lyrica] 50 mg PO TID 30 Days #90 capsule 09/18/17 [Rx] Amlodipine Besylate 10 mg PO DAILY 11/13/17 [History] Docusate Sodium [Dok] 100 mg PO BID 11/13/17 [History] Doxycycline 100 mg PO BID #60 capsule 11/13/17 [Rx] FentaNYL PATCH [Duragesic] 25 mcg TD Q72H 30 Days #10 patch.td72 11/13/17 [Rx] Oxycodone HCl [Oxaydo] 5 - 10 mg PO Q6H PRN 15 Days #120 tablet.orl 11/13/17 [Rx ] Sennosides [Senna] 8.6 mg PO DAILY 11/13/17 [History] Vemurafenib [Zelboraf] 960 mg PO BID #240 tablet 11/14/17 [Rx] 3 Allergy/AdvReac Type Severity Reaction Status Date / Time adhesive tape AdvReac Rash Verified 11/20/17 11:32 Oxycodone [From Tylox] AdvReac Vomiting Verified 11/20/17 11:32 rivaroxaban [From Xarelto] AdvReac See Verified 11/20/17 11:32 Comments Review of Systems Provider Comments: A 12 point review of systems was performed. Pertinent positives and negatives are listed below and in the history of present illness. All other systems negative. Physical Exam - Vitals Vital Signs: Last Vital Signs Temp 97.6 F 11/24/17 10:37 Pulse 51 11/24/17 10:37 Resp 18 11/24/17 10:37 BP 147/84 11/24/17 10:37 Pulse Ox 97 11/24/17 10:37 Weight: 90.1 kg - Consciousness/Orientation Level Of Consciousness: Awake, Alert, Appropriate, Follows Commands Patient Orientation: Person, Place, Time, Name, Age, Date of , Day of Month , Day of Week, Month, Year, Time of Day Physical Exam: GENERAL: Alert and oriented, well appearing, age appropriate appearing. PSYCH: Affect appropriate for circumstances HEENT: Sclerae anicteric. No mucositis or thrush. No other oral or pharyngeal lesions or erythema. Skin: No rashes or petechiae. Warm to touch. Lymph nodes: No cervical or supraclavicular adenopathy. Lungs: Clear to auscultation and percussion bilaterally. Cardiovascular: Regular rhythm and normal rate. No gallops, murmurs, or rubs. Neurologic: Alert, oriented x 3 extraoccular mvts intact, pupils equally round and reactive to light and accommodation, visual esteban intact, no facial droop, palate elevation symmetric , subjective asymmetry of right V2, tongue midline full shoulder shrug, hearing grossly normal Motor: tone normal, 5/5 in all 4 extremities Coordination: finger to nose, rapid alternating movements normal, and heel-to- bull normal Sensory: symmetric to light touch bilaterally Gait: gait not assessed Oncology- Results - Diagnostic Studies CT OF THE CHEST WITH CONTRAST; CT OF THE ABDOMEN AND PELVIS WITH CONTRAST 2017 Mixed response to therapy with slight decrease in the size of some of the pulmonary metastatic lesions and slight increase in a few of the other lesions. Most of the lesions are stable. The very small pulmonary lesions could be from old granulomatous disease. No evident intra-abdominal metastatic disease. Stable appearance of the abdomen and pelvis. MRI OF THE BRAIN WITHOUT AND WITH CONTRAST 11/20/2017 reviewed 1. Leptomeningeal enhancement underlying cortical signal abnormality involving the high posterior left frontal lobe with a 2nd tiny focus of abnormal enhancement and T2/FLAIR hyperintensity in the vermis. Differential diagnostic considerations include infectious leptomeningitis or leptomeningeal carcinomatosis given history of metastatic cancer. Correlation with CSF analysis is advised. 2. No evidence of acute infarct, hemorrhage, or mass effect. 3. Nonspecific right parietal scalp swelling. - Assessment Assessment: Assessment: 57-year-old female with colon cancer diagnosed in 2009 with developement of metastatic disease in 2013 s/p multiple lines of chemotherapy now presenting with dizziness, [place], right subjective CNV2 paraesthesia, and back pain radiating down right leg with MR brain demonstrating areas of leptomeningeal enhancement. Plan: I had a long detailed discussion with Tamiko, her , and her son today regarding the imaging findings on her MRI in light of her current symptoms. We discussed the concern over leptomeningeal carcinomatosis in the setting of her establish metastatic colon cancer. We discussed the rarity of this diagnosis. There is relatively little literature published on leptomeningeal involvement from colon cancer. There is a retrospective series from the [facility] where by 10 of 17,095 colon cancer patients over a 15 year period developed leptomeningeal involvement. Involvement was mixed between intracranial and spinal involvement with 1 patient having both. Median survival was 7 weeks. I discussed this with the patient today. We discussed that radiotherapy has been used though mostly for palliative purposes. It is not clear that he does anything in terms of improving survival. We reviewed the risk of further dissemination within the spine. With her recent onset of back pain radiating into her leg, I do think it would be beneficial to get MRI of the cervical, thoracic, and lumbar spine to look for involvement there. Additionally, given the rarity of the disease, limited involvement on MRI, other recent infections including periodontitis and cholangitis, and significant implications with respect to prognosis, I recommended a lumbar puncture. Recs for LP and imaging discussed with Dr. Ramirez. Once spine imaging and LP are completed, we will revisit the role of palliative radiotherapy. At the end of our discussion, she and her family had a very good understanding of her current clinical situation. Galdino العلي MD Radiation Oncology This report was generated using [employer] dictation.
[2017-11-24 16:32] LABS: Red Blood Cell,CSF < 0.002 M/mcL
[2017-11-24 16:33] LABS: Appearance,CSF Clear (Clear)
[2017-11-24 16:55] LABS: Glucose,CSF 69 mg/dL (40-70); Total Protein,CSF 31 mg/dL (15-45)
[2017-11-24] MEDS: diazePAM 5 MG TABLET PO PRN (16:59)
[2017-11-24] MEDS ORDERED: Dextrose Gel 15 GM/37.5 ML TUBE PO PRN ×2 (17:25)
[2017-11-24] MEDS ORDERED: *HR* Dextrose 50 % in Water (Syg) 50 ML SYRINGE IVP PRN (17:25)
[2017-11-24] MEDS ORDERED: D5% in Water 1,000 ML IVC PRN (17:25)
--- NOTE | 2017-11-24 17:52 | Oncology Inp Progress Note ---
<Oliva Montes De Oca L - Last Filed: 11/24/17 18:11> Date of Encounter: 11/24/17 Time of Encounter: 16:45 (1) Colon cancer metastasized to liver Current Visit: Yes Status: Chronic Assessment and plan: MRI brain reveals leptomeningeal enhancement underlying cortical signal abnormality involving the high posterior left frontal lobe with a 2nd tiny focus of abnormal enhancement and T2/FLAIR hyperintensity in the vermis, No evidence of acute infarct, hemorrhage, or mass effect. 11/24/2017 Ms. Hernandez has already been arranged to transition her therapy to Irinotecan with Panitumumab as well as a BRAF inhibitor, vemurafenib. 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 Further treatment options dependant upon further workup with pending MRI/LP results. Given her relatively limited display of associated RIGGING WORKER symptoms, we are hopeful to maintain control of her metastatic burden to allow as much longevity as possible with maintaining good QOL. Dr. Duggan discussed palliative nature of treatment along with general prognosis with patient and patients family today. (2) Dizziness Current Visit: Yes Status: Acute Assessment and plan: She had her initial consultation with Dr. العلي today. Given the rarity of her diagnosis, recent infection and following further discussion with radiology regarding the extent of RIGGING WORKER involvement of leptomeningeal disease, recommendation was made for LP prior to radiotherapy initiation. LP recently completed, will monitor for results, further decision on role for palliative radiotherapy TBD pending results She has had acute onset of lower back pain which radiates down her right leg. MRI of the cervical, thoracic and lumbar spine pending. Dr. Duggan again discussed plan as outline above with patient and patients family at today's visit. Continue decadron, she is on a PPI Please refer to Dr. Duggan's attestation below. Oncology: Subj Interval history: Ms. Hernandez is resting in bed following her very recent LP procedure. Multiple family members are at bedside. She is grieving regarding her recent findings indicative of progression but attempting to maintain a positive outlook. She is stable and non-toxic appearing. Symptoms well controlled with steroids. - Constitutional Vitals: Vital Signs Temp Pulse Resp BP Pulse Ox 11/24/17 16:35 98.2 F 61 17 196/102 95 11/24/17 10:37 97.6 F 51 18 147/84 97 11/24/17 07:26 97.8 F 58 17 146/86 97 11/24/17 02:56 97.5 F L 56 14 158/56 98 11/23/17 23:40 98.0 F 59 14 143/80 97 11/23/17 19:29 97.8 F 54 14 152/87 98 Intake and Output 11/24/17 11/24/17 11/24/17 07:59 15:59 23:59 Intake Total 100 / 100 720 / 720 0 / 0 Output Total 500 / 500 800 / 800 0 / 0 Balance -400 / -400 -80 / -80 0 / 0 Intake: Oral 100 / 100 720 / 720 0 / 0 Output: Urine 500 / 500 800 / 800 0 / 0 Other: Meal Lunch Percent of Meal Consumed 100% # Voids 1 1 Weight 90.1 kg 90.1 kg Patient Weight 11/24/17 23:59 Weight 90.1 kg General appearance: cooperative, no acute distress, no febrile - ENT ENT exam: Present: mucous membranes moist - Respiratory Respiratory exam: Present: CTAB. Absent: respiratory distress - Cardiovascular Cardiovascular exam: Present: RRR, +S1, +S2 - GI/Abdominal GI/Abdominal exam: Present: normal bowel sounds, soft. Absent: tenderness - Extremities Exam Extremities exam: Present: normal inspection. Absent: calf tenderness - Neurological Exam Neurological exam: Present: alert, oriented X3, no focal deficits, strengths equal and symetr throughout - Psychiatric Psychiatric exam: Present: depressed - Skin Skin exam: Present: dry, intact, normal color, warm Oncology: Obj Data - Labs CBC & Chem 7: 11/22/17 04:00 11/22/17 04:00 Labs: Laboratory Results - last 24 hr 11/24/17 15:45 CSF Volume 9.0 CSF Appearance Clear CSF Color Colorless CSF RBC < 0.002 CSF Tot Nucleated Cells 3 CSF Seg Neutrophils Test Not Performed CSF Band Neutrophils % Test Not Performed CSF Lymphocytes % Test Not Performed CSF Monocytes % Test Not Performed CSF Eosinophils % Test Not Performed CSF Basophils % Test Not Performed CSF Other Cells % Test Not Performed CSF Glucose 69 CSF Xanth Comm Not Observed CSF Total Protein 31 - Impressions Impressions Lumbar Puncture Fluoroscopy 11/24/17 14:16 IMPRESSION: Successful fluoroscopic-guided lumbar puncture. D/ / 11/24/2017 15:58:33 Dashawn Sanchez MD / kaylene Interpreting Provider: Dashawn Sanchez MD - ABG Interpretation ABG results: PT/INR, D-dimer PT 12.3 Seconds (9.4-12.1) H 11/21/17 08:37 Consult Discharge Plan - Plan Referrals: Marcell Simon DO [Primary Care Provider] - <Jairon Duggan - Last Filed: 11/25/17 08:06> Date of Encounter: 11/25/17 (1) Dizziness Current Visit: Yes Status: Acute (2) Colon cancer Current Visit: No Status: Acute Qualifiers: Colon location: unspecified part of colon Qualified Code(s): C18.9 - Malignant neoplasm of colon, unspecified - Constitutional Vitals: Vital Signs Temp Pulse Resp BP Pulse Ox 11/25/17 07:23 97.6 F 53 14 181/100 98 11/25/17 04:09 97.8 F 55 16 167/95 97 11/24/17 23:29 97.6 F 56 16 160/79 97 11/24/17 20:05 97.6 F 58 16 147/88 96 11/24/17 16:35 98.2 F 61 17 196/102 95 11/24/17 10:37 97.6 F 51 18 147/84 97 Intake and Output 11/24/17 11/25/17 11/25/17 16:59 00:59 08:59 Intake Total 720 / 720 240 / 240 Output Total 800 / 800 Balance -80 / -80 239 / 239 Intake: Oral 720 / 720 240 / 240 Output: Urine 800 / 800 Urine/Stool Mix Other: Meal Lunch Dinner Percent of Meal Consumed 100% 100% # Voids 1 # Urine Diapers 1 Weight 90.1 kg 90.2 kg Blood Glucose* 94 102 Patient Weight 11/26/17 00:59 Weight 90.2 kg Oncology: Obj Data - Labs CBC & Chem 7: 11/22/17 04:00 11/22/17 04:00 Labs: Laboratory Results - last 24 hr 11/24/17 11/24/17 11/25/17 15:45 20:13 07:43 POC Glucose 94 102 H CSF Volume 9.0 CSF Appearance Clear CSF Color Colorless CSF RBC < 0.002 CSF Tot Nucleated Cells 3 CSF Seg Neutrophils Test Not Performed CSF Band Neutrophils % Test Not Performed CSF Lymphocytes % Test Not Performed CSF Monocytes % Test Not Performed CSF Eosinophils % Test Not Performed CSF Basophils % Test Not Performed CSF Other Cells % Test Not Performed CSF Glucose 69 CSF Xanth Comm Not Observed CSF Total Protein 31 - Impressions Impressions Cervical Spine MRI 11/24/17 14:12 IMPRESSION: Multilevel degenerative disc disease in the cervical, thoracic and lumbar spine as described. See above for details No evidence of leptomeningeal metastatic disease to the cervical or thoracic canal. There is enhancement noted in the cauda equina. This is seen best on sagittal postcontrast imaging however is also seen on axial postcontrast image 10 at the L1-L2 level. This is concerning for metastatic disease. Sequela of neuritis not excluded. Focal areas nodular enhanced along the anterior aspect of the cord at the upper T12 level is seen on the sagittal postcontrast images of the lumbar spine only. This is not seen on the sagittal postcontrast images of the thoracic spine. D/ / Castillo Briones / Castillo Briones Interpreting Provider: Castillo Briones Lumbar Spine MRI 11/24/17 14:12 IMPRESSION: Multilevel degenerative disc disease in the cervical, thoracic and lumbar spine as described. See above for details No evidence of leptomeningeal metastatic disease to the cervical or thoracic canal. There is enhancement noted in the cauda equina. This is seen best on sagittal postcontrast imaging however is also seen on axial postcontrast image 10 at the L1-L2 level. This is concerning for metastatic disease. Sequela of neuritis not excluded. Focal areas nodular enhanced along the anterior aspect of the cord at the upper T12 level is seen on the sagittal postcontrast images of the lumbar spine only. This is not seen on the sagittal postcontrast images of the thoracic spine. D/ / Castillo Briones / Castillo Briones Interpreting Provider: Castillo Briones Thoracic Spine MRI 11/24/17 14:12 IMPRESSION: Multilevel degenerative disc disease in the cervical, thoracic and lumbar spine as described. See above for details No evidence of leptomeningeal metastatic disease to the cervical or thoracic canal. There is enhancement noted in the cauda equina. This is seen best on sagittal postcontrast imaging however is also seen on axial postcontrast image 10 at the L1-L2 level. This is concerning for metastatic disease. Sequela of neuritis not excluded. Focal areas nodular enhanced along the anterior aspect of the cord at the upper T12 level is seen on the sagittal postcontrast images of the lumbar spine only. This is not seen on the sagittal postcontrast images of the thoracic spine. D/ / Castillo Briones / Castillo Briones Interpreting Provider: Castillo Briones Lumbar Puncture Fluoroscopy 11/24/17 14:16 IMPRESSION: Successful fluoroscopic-guided lumbar puncture. D/ / 11/24/2017 15:58:33 Dashawn Sanchez MD / kaylene Interpreting Provider: Dashawn Sanchez MD - ABG Interpretation ABG results: PT/INR, D-dimer PT 12.3 Seconds (9.4-12.1) H 11/21/17 08:37 - Attending Attestation I examined this patient and my medical decision-making was reviewed with the Advanced Practice Nurse. I agree with the documented findings, disposition and treatment plan as described except to the extent set forth below. I reviewed this case with Dr. العلي of radiation oncology. There is some equivocation whether this represents leptomeningeal disease, although radiology feels pretty certain of this. Dr. العلي has recommended a lumbar puncture which has been completed. He is also recommended imaging of the spine which is currently pending for later today. Dr. العلي had deon conversation with Tiana David regarding her prognosis if this is a leptomeningeal carcinomatosis. I echoed these concerns with her today but also explained that with the rapid addition, that may change the prognosis as this medication does have RIGGING WORKER activity and states in melanoma have been quite impressive. If this represents leptomeningeal disease limited to the brain, we will proceed with radiation therapy to the brain followed by reinitiation of chemotherapy.
[2017-11-24] MEDS ORDERED: Insulin LISPRO 300 UNITS/3 ML VIAL SQ SCH (21:00)
[2017-11-24] MEDS ORDERED: *HR* FentaNYL PATCH 25 MCG PATCH TD SCH (23:00)
[2017-11-25] MEDS: *HR* Heparin 5,000 UNIT/ML VIAL SQ SCH (06:48)
[2017-11-25] MEDS: Insulin LISPRO 300 UNITS/3 ML VIAL SQ SCH ×3 (07:55→17:49)
[2017-11-25] MEDS: amLODIPine 5 MG TABLET PO SCH (07:56)
[2017-11-25] MEDS: Sennosides 8.6 MG TABLET PO SCH (07:56)
[2017-11-25] MEDS: FLUoxetine 20 MG CAPSULE PO SCH (07:56)
[2017-11-25] MEDS: Doxycycline 100 MG CAPSULE PO SCH (07:56)
[2017-11-25] MEDS: Lisinopril 20 MG TABLET PO SCH (07:57)
[2017-11-25] MEDS: Pregabalin 50 MG CAPSULE PO SCH ×2 (07:57→15:28)
--- NOTE | 2017-11-25 10:48 | Internal Med Progress Note ---
<Marcell Beebe - Last Filed: 11/25/17 10:46> Date of Encounter: 11/25/17 Time of Encounter: 07:30 - Assessment and plan (1) Colon cancer metastasized to liver Status: Chronic Assessment and plan: H/o colon cancer with metastasis to the liver, and lungs. Additionally has bladder cancer but it is unclear whether or not this is a primary cancer or peritoneal metastasis - Lumbar puncture results demonstrate normal CSF, no concerning findings for bacterial or viral infection - MRI of the cervical, thoracic and lumbar spine demonstrates focal areas of nodular enhancements on anterior aspect of the cord at upper level TXII and enhancement noted at the cauda equina around L1-L2. Multi-level degenerative disc disease cervical thoracic and lumbar spines. - Oncology following, determining whether radiation would help with symptoms or palliative chemotherapy. - Discussed with oncology team regarding patient's current concerns. - Consider palliative care consult (2) Colon cancer metastasized to lung Status: Chronic Assessment and plan: As discussed above. (3) Bladder cancer Status: Chronic Assessment and plan: significant hx of bladder cancer - with current metastatic colon cancer unsure if this is primary or secondary. Qualifiers: Bladder location: unspecified site Qualified Code(s): C67.9 - Malignant neoplasm of bladder, unspecified (4) Vertigo Status: Suspected Assessment and plan: Witnessed fall preceded by neurologic symptoms-diziness and vertigo Patient continues to have dizziness today with no nystagmus MRI noted for leptomeningeal carcinomatosis vs meningitis Per oncology, it is definitely metastatic brain disease and antibiotics/lumbar puncture was cancelled by Dr. Maradiaga EKG is non-ischemic ECHO noted for mild LVDD, otherwise unremarkable carotid doppler is negative Plan: Continue supportive care. - Patient considering radiation therapy for symptom management. - PT/OT eval is still pending (5) Essential hypertension Status: Chronic Assessment and plan: continue current meds (6) DVT prophylaxis Status: Acute Assessment and plan: Heparin 5000 units SC BID - Time Spent With Patient Total time spent is greater than 50% in coordination of care (as documented) at patient's floor/unit and/or counseling patient: - Subjective Interval history: Ms. Hernandez 57 yo female seen and evaluated at patient bedside. She is sitting up at bedside in no acute distress yet she is very tearful. She states she had a thorough discussion with oncology both Dr. العلي and Dr. Duggan yesterday and she understands that her time is limited. She is confused on if she has weeks or months to live regarding her current prognostic factors. She is very tearful over the information is having difficulty with processing at this time. She denies any fevers, chills, diaphoresis but continues to have dizziness and pain control is adequate at this time. - Constitutional Vitals: Temp Pulse Resp BP Pulse Ox 97.6 F 53 14 181/100 98 11/25/17 07:23 11/25/17 07:23 11/25/17 07:23 11/25/17 07:23 11/25/17 07:23 General appearance: Present: cooperative, A&O X 3, no acute distress, obese, answers questions appropriately Exam: Gen. alert, awake interactive, tearful HEENT: NC/AT, mucous membranes moist Chest: symmetric correlating with respiratory effort which is nonlabored Resp: CTABL Cardiac: RRR, +S1, +S2 Abdominal: soft, nontender, + BS Extremities: symmetric bilateral, patient moving all 4 limbs spontaneously Internal Medicine: Result - Labs CBC & Chem 7: 11/22/17 04:00 11/22/17 04:00 - ABG Interpretation ABG results: PT/INR, D-dimer PT 12.3 Seconds (9.4-12.1) H 11/21/17 08:37 - Impressions Impressions Cervical Spine MRI 11/24/17 14:12 IMPRESSION: Multilevel degenerative disc disease in the cervical, thoracic and lumbar spine as described. See above for details No evidence of leptomeningeal metastatic disease to the cervical or thoracic canal. There is enhancement noted in the cauda equina. This is seen best on sagittal postcontrast imaging however is also seen on axial postcontrast image 10 at the L1-L2 level. This is concerning for metastatic disease. Sequela of neuritis not excluded. Focal areas nodular enhanced along the anterior aspect of the cord at the upper T12 level is seen on the sagittal postcontrast images of the lumbar spine only. This is not seen on the sagittal postcontrast images of the thoracic spine. D/ / Castillo Briones / Castillo Briones Interpreting Provider: Castillo Briones Lumbar Spine MRI 11/24/17 14:12 IMPRESSION: Multilevel degenerative disc disease in the cervical, thoracic and lumbar spine as described. See above for details No evidence of leptomeningeal metastatic disease to the cervical or thoracic canal. There is enhancement noted in the cauda equina. This is seen best on sagittal postcontrast imaging however is also seen on axial postcontrast image 10 at the L1-L2 level. This is concerning for metastatic disease. Sequela of neuritis not excluded. Focal areas nodular enhanced along the anterior aspect of the cord at the upper T12 level is seen on the sagittal postcontrast images of the lumbar spine only. This is not seen on the sagittal postcontrast images of the thoracic spine. D/ / Castillo Briones / Castillo Briones Interpreting Provider: Castillo Briones Thoracic Spine MRI 11/24/17 14:12 IMPRESSION: Multilevel degenerative disc disease in the cervical, thoracic and lumbar spine as described. See above for details No evidence of leptomeningeal metastatic disease to the cervical or thoracic canal. There is enhancement noted in the cauda equina. This is seen best on sagittal postcontrast imaging however is also seen on axial postcontrast image 10 at the L1-L2 level. This is concerning for metastatic disease. Sequela of neuritis not excluded. Focal areas nodular enhanced along the anterior aspect of the cord at the upper T12 level is seen on the sagittal postcontrast images of the lumbar spine only. This is not seen on the sagittal postcontrast images of the thoracic spine. D/ / Castillo Briones / Castillo Briones Interpreting Provider: Castillo Briones Lumbar Puncture Fluoroscopy 11/24/17 14:16 IMPRESSION: Successful fluoroscopic-guided lumbar puncture. D/ / 11/24/2017 15:58:33 Dashawn Sanchez MD / kaylene Interpreting Provider: Dashawn Sanchez MD - VTE Documentation of Mechanical Device: Intermittent pneumatic compression device Consult Discharge Plan - Plan Instructions: Diverticulitis (DC), Urinary Tract Infection in Women (DC), Chronic Hypertension (DC), Fall Prevention (DC) Additional Instructions: follow up with Oncology Referrals: Mervat Joyner MD [Partnered Physician] - 12/01/17 1:30 pm <Noman Garcia - Last Filed: 12/09/17 16:27> Date of Encounter: 12/09/17 - Assessment and plan (1) Colon cancer metastasized to lung Status: Chronic (2) Colon cancer metastasized to liver Status: Chronic (3) Essential hypertension Status: Chronic (4) DVT prophylaxis Status: Acute (5) Fall Status: Acute Qualifiers: Encounter type: initial encounter Qualified Code(s): W19.XXXA - Unspecified fall, initial encounter (6) Vertigo Status: Suspected (7) Unable to ambulate Status: Acute (8) Bladder cancer Status: Chronic Qualifiers: Bladder location: unspecified site Qualified Code(s): C67.9 - Malignant neoplasm of bladder, unspecified (9) Dizziness Status: Acute - Time Spent With Patient Total time spent is greater than 50% in coordination of care (as documented) at patient's floor/unit and/or counseling patient: - Constitutional Vitals: Temp Pulse Resp BP Pulse Ox 97.8 F 63 14 166/93 97 11/25/17 15:46 11/25/17 15:46 11/25/17 15:46 11/25/17 15:46 11/25/17 15:46 Internal Medicine: Result - Labs CBC & Chem 7: 11/22/17 04:00 11/22/17 04:00 - ABG Interpretation ABG results: PT/INR, D-dimer PT 12.3 Seconds (9.4-12.1) H 11/21/17 08:37 - Attending Attestation ok to discharge I examined this patient and my medical decision-making was reviewed with the Resident Physician. I agree with the documented findings, disposition and treatment plan as described except to the extent set forth below.
--- NOTE | 2017-11-25 12:20 | Oncology Inp Progress Note ---
<Oliva Montes De Oca L - Last Filed: 11/25/17 17:47> Date of Encounter: 11/25/17 Time of Encounter: 10:00 (1) Colon cancer metastasized to liver Current Visit: Yes Status: Chronic Assessment and plan: MRI brain reveals leptomeningeal enhancement underlying cortical signal abnormality involving the high posterior left frontal lobe with a 2nd tiny focus of abnormal enhancement and T2/FLAIR hyperintensity in the vermis, No evidence of acute infarct, hemorrhage, or mass effect. 11/25/2017 I met with Ms. Hernandez this morning regarding some concerns she had mentioned to her primary team caring for her this morning. I discussed with her that as of yet, her CSF analysis shows protein, glucose and RBC values that are within normal limits, which is not indicative of infectious etiology. I assured her that Dr. العلي and Dr. Duggan are going to collaborate together today to make recommendation on final plan for treatment. Given her relatively limited display of associated [employer]GER symptoms, we are hopeful to maintain control of her metastatic burden to allow as much longevity as possible with maintaining good QOL. She wishes to pursue treatment, we discussed the role for hospice in future when the time comes as she had questions regarding the hospice philosophy, I encouraged her to maintain her optimism with the current palliative treatment options we have at hand and further hospice discussions will come down the road when ever appropriate. 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 Dr. Duggan is planning to begin systemic therapy, once the role for radiotherapy is determined. Ms. Hernandez is understandably grieving over her diagnosis, verbal support given. Her is at bedside. Update: Following discussion between Dr. Duggan and Dr. 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 Plan is to start with BRAF inhibitor vemurafenib along with irinotecan, panitumumab and initiate radiotherapy only it symptoms were to progress/worsen. She is planned for discharge soon and will follow up with Dr. Duggan on . Please refer to Dr. Duggan's attestation below for additional details. (2) Dizziness Current Visit: Yes Status: Acute Assessment and plan: LP show values that are within normal limits, CSF cytology pending. Results indicative of leptomeningeal metastasis. MRI cervical, thoracic and lumbar spine reveals enhancement within the cauda equina concerning for metastatic disease. No new neurological symptoms, dizziness and facial tingling stable. Further collaboration with Dr. العلي/Dr. Duggan to take place regarding role for radiotherapy and when to initiate chemotherapy treatment. Continue decadron, she is on a PPI PT eval noted- recommended home with home health, PT with [facility]. She is hopeful for discharge soon. Please refer to Dr. Duggan's attestation below. Oncology: Subj Interval history: Ms. Hernandez is sitting up in her chair, she has worked with physical therapy today and cleared for discharge home with home health, PT/OT. She does not report any new symptoms or new neurological symptoms. Her dizziness and mild paresthesia of right face is reported as stable. - Constitutional Vitals: Vital Signs Temp Pulse Resp BP Pulse Ox 11/25/17 11:28 97.8 F 71 18 130/78 97 11/25/17 07:23 97.6 F 53 14 181/100 98 11/25/17 04:09 97.8 F 55 16 167/95 97 11/24/17 23:29 97.6 F 56 16 160/79 97 11/24/17 20:05 97.6 F 58 16 147/88 96 11/24/17 16:35 98.2 F 61 17 196/102 95 Intake and Output 11/24/17 11/25/17 11/25/17 23:59 07:59 15:59 Intake Total 240 / 240 240 / 240 Output Total 0 / 0 1 / 1 Balance 240 / 240 -1 / -1 240 / 240 Intake: Oral 240 / 240 240 / 240 Output: Urine 0 / 0 Urine/Stool Mix 1 / 1 Other: Meal Dinner Breakfast Percent of Meal Consumed 100% 75% Stool Size Small Stool Consistency formed Stool Color Brown # Urine Diapers 1 Weight 90.2 kg Blood Glucose* 94 102 116 Patient Weight 11/25/17 23:59 Weight 90.2 kg General appearance: cooperative, no acute distress, no febrile - Head Head exam: Present: atraumatic - Respiratory Respiratory exam: Present: CTAB. Absent: respiratory distress - Cardiovascular Cardiovascular exam: Present: RRR, +S1, +S2 - GI/Abdominal GI/Abdominal exam: Present: normal bowel sounds, soft. Absent: tenderness - Extremities Exam Extremities exam: Present: normal inspection. Absent: calf tenderness - Neurological Exam Neurological exam: Present: alert, oriented X3, no focal deficits, strengths equal and symetr throughout. Absent: facial droop, speech deficit - Psychiatric Additional comments: tearful - Skin Skin exam: Present: dry, intact, normal color, warm Oncology: Obj Data - Labs CBC & Chem 7: 11/22/17 04:00 11/22/17 04:00 Labs: Laboratory Results - last 24 hr 11/24/17 11/24/17 11/25/17 15:45 20:13 07:43 POC Glucose 94 102 H CSF Volume 9.0 CSF Appearance Clear CSF Color Colorless CSF RBC < 0.002 CSF Tot Nucleated Cells 3 CSF Seg Neutrophils Test Not Performed CSF Band Neutrophils % Test Not Performed CSF Lymphocytes % Test Not Performed CSF Monocytes % Test Not Performed CSF Eosinophils % Test Not Performed CSF Basophils % Test Not Performed CSF Other Cells % Test Not Performed CSF Glucose 69 CSF Xanth Comm Not Observed CSF Total Protein 31 - Impressions Impressions Cervical Spine MRI 11/24/17 14:12 IMPRESSION: Multilevel degenerative disc disease in the cervical, thoracic and lumbar spine as described. See above for details No evidence of leptomeningeal metastatic disease to the cervical or thoracic canal. There is enhancement noted in the cauda equina. This is seen best on sagittal postcontrast imaging however is also seen on axial postcontrast image 10 at the L1-L2 level. This is concerning for metastatic disease. Sequela of neuritis not excluded. Focal areas nodular enhanced along the anterior aspect of the cord at the upper T12 level is seen on the sagittal postcontrast images of the lumbar spine only. This is not seen on the sagittal postcontrast images of the thoracic spine. D/ / Castillo Briones / Castillo Briones Interpreting Provider: Castillo Briones Lumbar Spine MRI 11/24/17 14:12 IMPRESSION: Multilevel degenerative disc disease in the cervical, thoracic and lumbar spine as described. See above for details No evidence of leptomeningeal metastatic disease to the cervical or thoracic canal. There is enhancement noted in the cauda equina. This is seen best on sagittal postcontrast imaging however is also seen on axial postcontrast image 10 at the L1-L2 level. This is concerning for metastatic disease. Sequela of neuritis not excluded. Focal areas nodular enhanced along the anterior aspect of the cord at the upper T12 level is seen on the sagittal postcontrast images of the lumbar spine only. This is not seen on the sagittal postcontrast images of the thoracic spine. D/ / Castillo Briones / Castillo Briones Interpreting Provider: Castillo Briones Thoracic Spine MRI 11/24/17 14:12 IMPRESSION: Multilevel degenerative disc disease in the cervical, thoracic and lumbar spine as described. See above for details No evidence of leptomeningeal metastatic disease to the cervical or thoracic canal. There is enhancement noted in the cauda equina. This is seen best on sagittal postcontrast imaging however is also seen on axial postcontrast image 10 at the L1-L2 level. This is concerning for metastatic disease. Sequela of neuritis not excluded. Focal areas nodular enhanced along the anterior aspect of the cord at the upper T12 level is seen on the sagittal postcontrast images of the lumbar spine only. This is not seen on the sagittal postcontrast images of the thoracic spine. D/ / Castillo Briones / Castillo Briones Interpreting Provider: Castillo Briones Lumbar Puncture Fluoroscopy 11/24/17 14:16 IMPRESSION: Successful fluoroscopic-guided lumbar puncture. D/ / 11/24/2017 15:58:33 Dashawn Sanchez MD / kaylene Interpreting Provider: Dashawn Sanchez MD - ABG Interpretation ABG results: PT/INR, D-dimer PT 12.3 Seconds (9.4-12.1) H 11/21/17 08:37 Consult Discharge Plan - Plan Instructions: Diverticulitis (DC), Urinary Tract Infection in Women (DC), Chronic Hypertension (DC), Fall Prevention (DC) Additional Instructions: follow up with Oncology Referrals: Mervat Joyner MD [Partnered Physician] - 04/16/18 1:30 pm <Jairon Duggan S - Last Filed: 11/25/17 18:01> Date of Encounter: 11/25/17 (1) Dizziness Current Visit: Yes Status: Acute (2) Colon cancer Current Visit: No Status: Acute Qualifiers: Colon location: unspecified part of colon Qualified Code(s): C18.9 - Malignant neoplasm of colon, unspecified - Constitutional Vitals: Vital Signs Temp Pulse Resp BP Pulse Ox 11/25/17 15:46 97.8 F 63 14 166/93 97 11/25/17 11:28 97.8 F 71 18 130/78 97 11/25/17 07:23 97.6 F 53 14 181/100 98 11/25/17 04:09 97.8 F 55 16 167/95 97 11/24/17 23:29 97.6 F 56 16 160/79 97 11/24/17 20:05 97.6 F 58 16 147/88 96 Intake and Output 11/25/17 11/25/17 11/26/17 08:59 16:59 00:59 Intake Total 480 / 480 Balance 480 / 480 Intake: Oral 480 / 480 Other: Meal Lunch Percent of Meal Consumed 60% Stool Size Small Stool Consistency formed Stool Color Brown # Urine Diapers 1 2 # Bowel Movement Diapers 0 Weight 90.2 kg Blood Glucose* 102 104 Patient Weight 11/26/17 00:59 Weight 90.2 kg Oncology: Obj Data - Labs CBC & Chem 7: 11/22/17 04:00 11/22/17 04:00 Labs: Laboratory Results - last 24 hr 11/24/17 11/25/17 20:13 07:43 POC Glucose 94 102 H - Impressions Impressions Cervical Spine MRI 11/24/17 14:12 IMPRESSION: Multilevel degenerative disc disease in the cervical, thoracic and lumbar spine as described. See above for details No evidence of leptomeningeal metastatic disease to the cervical or thoracic canal. There is enhancement noted in the cauda equina. This is seen best on sagittal postcontrast imaging however is also seen on axial postcontrast image 10 at the L1-L2 level. This is concerning for metastatic disease. Sequela of neuritis not excluded. Focal areas nodular enhanced along the anterior aspect of the cord at the upper T12 level is seen on the sagittal postcontrast images of the lumbar spine only. This is not seen on the sagittal postcontrast images of the thoracic spine. D/ / Castillo Briones / Castillo Briones Interpreting Provider: Castillo Briones Lumbar Spine MRI 11/24/17 14:12 IMPRESSION: Multilevel degenerative disc disease in the cervical, thoracic and lumbar spine as described. See above for details No evidence of leptomeningeal metastatic disease to the cervical or thoracic canal. There is enhancement noted in the cauda equina. This is seen best on sagittal postcontrast imaging however is also seen on axial postcontrast image 10 at the L1-L2 level. This is concerning for metastatic disease. Sequela of neuritis not excluded. Focal areas nodular enhanced along the anterior aspect of the cord at the upper T12 level is seen on the sagittal postcontrast images of the lumbar spine only. This is not seen on the sagittal postcontrast images of the thoracic spine. D/ / Castillo Briones / Castillo Briones Interpreting Provider: Castillo Briones Thoracic Spine MRI 11/24/17 14:12 IMPRESSION: Multilevel degenerative disc disease in the cervical, thoracic and lumbar spine as described. See above for details No evidence of leptomeningeal metastatic disease to the cervical or thoracic canal. There is enhancement noted in the cauda equina. This is seen best on sagittal postcontrast imaging however is also seen on axial postcontrast image 10 at the L1-L2 level. This is concerning for metastatic disease. Sequela of neuritis not excluded. Focal areas nodular enhanced along the anterior aspect of the cord at the upper T12 level is seen on the sagittal postcontrast images of the lumbar spine only. This is not seen on the sagittal postcontrast images of the thoracic spine. D/ / Castillo Briones / Castillo Briones Interpreting Provider: Castillo Briones Lumbar Puncture Fluoroscopy 11/24/17 14:16 IMPRESSION: Successful fluoroscopic-guided lumbar puncture. D/ / 11/24/2017 15:58:33 Dashawn Sanchez MD / kaylene Interpreting Provider: Dashawn Sanchez MD - ABG Interpretation ABG results: PT/INR, D-dimer PT 12.3 Seconds (9.4-12.1) H 11/21/17 08:37 - Attending Attestation I examined this patient and my medical decision-making was reviewed with the Advanced Practice Nurse. I agree with the documented findings, disposition and treatment plan as described except to the extent set forth below. Review of Ms. Hernandez's lumbar puncture results reveal normal glucose and protein which are encouraging. However, she does have multiple nucleated cells. I am concerned this may represent underlying malignancy. Dr. العلي and I reviewed her case at length. Dr. العلي also met with Ms. Hernandez today in the hospital. We have secured her supply of zelboraf, and this will be delivered to on Friday. I see her on and we will hopefully his plan to initiate therapy shortly after discharge. I am hopeful that this zelboraf will enable [employer]GER disease control as evidenced in the melanoma data set. She will meet with me on to initiate therapy shortly thereafter. She may be discharged to home. I will decrease her Decadron to 4 mg twice a day
--- NOTE | 2017-11-25 13:00 | Rad Onc Dictation ---
Radiation Oncology Dictation Date of Service: 11/25/17 - Oncology History Comments: Diagnosis: Metastatic adenocarcinoma of the colon Previous Treatment: 2009: Right hemicolectomy 10/2010: completed adjuvant FOLFOX for stage III colon cancer. 01/07/13: Right hepatectomy and partial left hepatectomy with hepatic artery infusion pump placement. 10/30/2014 - 12/26/2015: FOLFIRI + Avastin 01/2016 - 03/2016: FOLFIRI with Avastin 04/15/2016: Chemotherapy held for diverticulitis 04/24/2016 - 11/26/2016: FOLFIRI with Avastin 01/14/2017: Removal of hepatic artery infusion pump 02/24/20171: ERCP with stent placement 03/2017 - present: Restarted Irinotecan/Avastin 04/14/2017: TURBT (Invasive adenocarcinoma involving bladder mucosa and muscularis propria, differential diagnosis includes adenocarcinoma of the urinary bladder versus metastatic adenocarcinoma from GI tract) 05/07/2017: ERCP with stent exchange ([facility]) - Progress Note Comments: Tamiko complaints of constipation today. She notes stable dizziness. Back pain has been slightly increased sitting in her hospital bed. Stable mild paresthesia of the right face. She denies any other new symptoms including any neurologic changes. We reviewed the spine MR imaging findings from yesterday. There does appear to be small nodular enhancement in the cauda equina and along the anterior low T- spine consistent with follicular leptomeningeal involvement. CSF protein was normal which is slightly unusual for leptomeningeal disease where is usually elevated. However, there was nothing to suggest an infectious etiology. 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 We discussed treatment options to include palliative radiotherapy, further palliative systemic therapy, or supportive care. Dr. Duggan is optimistic about CSF penetration of a BRAF inhibitor. She currently is minimally symptomatic. We discussed that radiotherapy is useful for symptom control and potentially increasing transmission of systemic agents through the blood brain barrier. We reviewed the logistics, acute side effects, risks and potential benefits of whole brain radiotherapy in detail. I did not discuss craniospinal irradiation which is not recommended. Ultimately, given her tolerable symptoms in discussion with Dr. Duggan, plan is to start with BRAF inhibitor and initiate radiotherapy only it symptoms were to progress/worsen. She was given my cell phone number and educated on signs and symptoms to look out for. All further treatment and workup can be done as an outpatient. Galdino العلي MD This report was generated using [employer].
[2017-11-25 15:50] VITALS: BP 166/93
--- NOTE | 2017-11-25 16:38 | Discharge Summary ---
<Marcell Beebe - Last Filed: 11/25/17 17:07> Orders not resulted at time of discharge: Pending orders 11/24/17 14:18 Cytology Other [PTH] Routine 11/24/17 14:19 Cytology [PTH] Routine 11/24/17 15:45 Culture,CSF [RM] Stat VDRL reflex titer, CSF Routine Date of Encounter: 11/25/17 Time of Encounter: 16:36 - Discharge Diagnosis (1) Colon cancer metastasized to liver Status: Chronic (2) Colon cancer metastasized to lung Status: Chronic (3) Bladder cancer Status: Chronic Qualifiers: Bladder location: unspecified site Qualified Code(s): C67.9 - Malignant neoplasm of bladder, unspecified (4) Vertigo Status: Suspected (5) Essential hypertension Status: Chronic (6) DVT prophylaxis Status: Acute Hospital course: Ms. Hernandez is a 57 year old female with pmh of metastatic colon cancer to the lungs and liver with last chemotherapy roughly 3-4 wks ago presented to the emergency department on november 20 with dizziness and fall hitting her head. Workup in the emergency department with C-spine show no acute abnormalities, Ct- Head with no acute intracranial abnormalities. Admitted for further evaluation an work up. MRI of the brain demonstrated Leptomeningeal enhancement underlying cortical signal abnormality involving the high posterior left frontal lobe with a 2nd tiny focus of abnormal enhancement and T2/FLAIR hyperintensity in the vermis. Carotid duplex had right sided 40-50% stenosis and left side was normal. Echocardiogram LVEF 60% with mild left ventricular diastolic dysfunction. EKG was non-ischemic. Oncology was consulted and the patient remained stable on the inpatient general medical floor. Patient was seen by both Dr. Duggan and Dr. العلي to review her case and discuss possible interventions and symptom management. She had an LP for work up for Leptomeningeal findings with no bacterial or viral findings on cytology. She underwent MRI of the cervical, thoracic and Lumbar spine with focal areas of nodular enhancements on anterior aspect of the cord at upper level TXII and enhancement noted at the cauda equina around L1-L2. Multi-level degenerative disc disease cervical thoracic and lumbar spines. After review by Oncology it was determined that her treatments would be palliative. She opted to change her code status to [id number], She was discharged home with follow up with Oncology. - Time Spent with Patient Total time spent providing and/or coordinating discharge services: - Discharge Medications Home Medications: Lidocaine/Prilocaine CREAM [Emla] 5 gm TP DAILY #1 tube 10/19/15 [Rx] Dexamethasone [Decadron] 4 mg PO DAILY #30 tablet 03/14/17 [Rx] LORazepam [Ativan] 1 mg PO Q6H PRN #60 tablet 03/14/17 [Rx] Ondansetron [Zofran] 8 mg PO Q8HR PRN #90 tablet 03/14/17 [Rx] Prochlorperazine Maleate [Compazine] 10 mg PO Q6HR PRN #120 tablet 03/14/17 [Rx] Acyclovir [Zovirax] 400 mg PO DAILY #30 tablet 04/15/17 [Rx] FLUoxetine HCl [Prozac] 40 mg PO DAILY #30 capsule 07/04/17 [Rx] Lisinopril [Zestril] 20 mg PO DAILY #30 tablet 07/04/17 [Rx] Pantoprazole Sodium [Protonix] 20 mg PO DAILY #30 tab 07/04/17 [Rx] diazePAM [Valium] 5 mg PO Q6H PRN #10 tablet 08/28/17 [Rx] Pregabalin [Lyrica] 50 mg PO TID 30 Days #90 capsule 09/18/17 [Rx] Amlodipine Besylate 10 mg PO DAILY 11/13/17 [History] Docusate Sodium [Dok] 100 mg PO BID 11/13/17 [History] Doxycycline 100 mg PO BID #60 capsule 11/13/17 [Rx] FentaNYL PATCH [Duragesic] 25 mcg TD Q72H 30 Days #10 patch.td72 11/13/17 [Rx] Oxycodone HCl [Oxaydo] 5 - 10 mg PO Q6H PRN 15 Days #120 tablet.orl 11/13/17 [Rx ] Sennosides [Senna] 8.6 mg PO DAILY 11/13/17 [History] Vemurafenib [Zelboraf] 960 mg PO BID #240 tablet 11/14/17 [Rx] Allergies/Adverse Reactions: 3 Allergy/AdvReac Type Severity Reaction Status Date / Time adhesive tape AdvReac Rash Verified 11/20/17 11:32 Oxycodone [From Tylox] AdvReac Vomiting Verified 11/20/17 11:32 rivaroxaban [From Xarelto] AdvReac See Verified 11/20/17 11:32 Comments Date of admission: 11/22/17 13:39 Primary care physician: Jennifer Fortune Consults: 11/24/17 11:07 Consult to Physical Therapy [CONS] Routine Comment: Evaluate, develop and implement POC Reason for Consult: Recent falls, reports unable to ambulate Does patient have active BEDREST order?: No Is patient medically & hemodynamically stable?: Yes Patient assessed for mobility or mobilized this visit?: No - Constitutional Vitals: Temp Pulse Resp BP Pulse Ox 97.8 F 63 14 166/93 97 11/25/17 15:46 11/25/17 15:46 11/25/17 15:46 11/25/17 15:46 11/25/17 15:46 General appearance: Present: cooperative, A&O X 3, no acute distress, obese, answers questions appropriately Exam: Gen. alert, awake interactive, tearful HEENT: NC/AT, mucous membranes moist Chest: symmetric correlating with respiratory effort which is nonlabored Resp: CTABL Cardiac: RRR, +S1, +S2 Abdominal: soft, nontender, + BS Extremities: symmetric bilateral, patient moving all 4 limbs spontaneously - Patient Status Disposition: Home, Self-Care Condition: Good Overall status at discharge: patient is progressing back to baseline - Discharge Instructions Follow Up With: Mervat Joyner MD [Partnered Physician] - 12/01/17 1:30 pm Additional Instructions: follow up with Oncology - Diet and Activity Activity: increase activity as tolerated Diet: advance to your usual diet - VTE Documentation of Mechanical Device: Intermittent pneumatic compression device <Noman Garcia - Last Filed: 11/25/17 17:33> Orders not resulted at time of discharge: Pending orders 11/24/17 14:18 Cytology Other [PTH] Routine 11/24/17 14:19 Cytology [PTH] Routine 11/24/17 15:45 Culture,CSF [RM] Stat VDRL reflex titer, CSF Routine Date of Encounter: 11/25/17 - Discharge Diagnosis (1) Colon cancer metastasized to lung Priority: Primary Status: Chronic (2) Colon cancer metastasized to liver Priority: Primary Status: Chronic (3) Essential hypertension Priority: Secondary Status: Chronic (4) DVT prophylaxis Priority: Secondary Status: Acute (5) Fall Priority: Secondary Status: Acute Qualifiers: Encounter type: initial encounter Qualified Code(s): W19.XXXA - Unspecified fall, initial encounter (6) Vertigo Priority: Secondary Status: Suspected (7) Unable to ambulate Priority: Secondary Status: Acute (8) Bladder cancer Priority: Secondary Status: Chronic Qualifiers: Bladder location: unspecified site Qualified Code(s): C67.9 - Malignant neoplasm of bladder, unspecified (9) Dizziness Priority: Secondary Status: Acute Hospital course: Ms. Hernandez is a 57 year old female - Time Spent with Patient Total time spent providing and/or coordinating discharge services: Date of admission: 11/22/17 13:39 Primary care physician: Jennifer Fortune Consults: 11/24/17 11:07 Consult to Physical Therapy [CONS] Routine Comment: Evaluate, develop and implement POC Reason for Consult: Recent falls, reports unable to ambulate Does patient have active BEDREST order?: No Is patient medically & hemodynamically stable?: Yes Patient assessed for mobility or mobilized this visit?: No - Constitutional Vitals: Temp Pulse Resp BP Pulse Ox 97.8 F 63 14 166/93 97 11/25/17 15:46 11/25/17 15:46 11/25/17 15:46 11/25/17 15:46 11/25/17 15:46 - Attending Attestation the patient prefers to be a DNRT cc Arrest DNI follow up with oncology and radiotherapy as outpatient time spent : 40 min I examined this patient and my medical decision-making was reviewed with the Resident Physician. I agree with the documented findings, disposition and treatment plan as described except to the extent set forth below.
--- NOTE | 2017-11-25 16:42 | Physician Discharge Referral ---
Home Health/Hosp Referral Info Transfer to: Home Health Provider in Charge Post Discharge: PCP - Diagnosis (1) Colon cancer metastasized to liver Priority: Primary Status: Chronic (2) Colon cancer metastasized to lung Priority: Primary Status: Chronic (3) Bladder cancer Priority: Primary Status: Chronic (4) Vertigo Priority: Primary Status: Suspected (5) Essential hypertension Priority: Secondary Status: Chronic (6) DVT prophylaxis Priority: Secondary Status: Acute - Respiratory Orders Smoking Cessation: Smoking cessation has been advised. For more information, call the [place] Tobacco Quit Line at 1-306-NFAX-NOW. - Diet/Nutrition Diet/Nutrition Orders: Regular - Activity Activity Orders: Up ad avril - Services Needed Following services are medically necessary services: Nursing, Home Health Aide, Med Social Work - Transfer Medications Home Medications: Lidocaine/Prilocaine CREAM [Emla] 5 gm TP DAILY #1 tube 10/19/15 [Rx] Dexamethasone [Decadron] 4 mg PO DAILY #30 tablet 03/14/17 [Rx] LORazepam [Ativan] 1 mg PO Q6H PRN #60 tablet 03/14/17 [Rx] Ondansetron [Zofran] 8 mg PO Q8HR PRN #90 tablet 03/14/17 [Rx] Prochlorperazine Maleate [Compazine] 10 mg PO Q6HR PRN #120 tablet 03/14/17 [Rx] Acyclovir [Zovirax] 400 mg PO DAILY #30 tablet 04/15/17 [Rx] FLUoxetine HCl [Prozac] 40 mg PO DAILY #30 capsule 07/04/17 [Rx] Lisinopril [Zestril] 20 mg PO DAILY #30 tablet 07/04/17 [Rx] Pantoprazole Sodium [Protonix] 20 mg PO DAILY #30 tab 07/04/17 [Rx] diazePAM [Valium] 5 mg PO Q6H PRN #10 tablet 08/28/17 [Rx] Pregabalin [Lyrica] 50 mg PO TID 30 Days #90 capsule 09/18/17 [Rx] Amlodipine Besylate 10 mg PO DAILY 11/13/17 [History] Docusate Sodium [Dok] 100 mg PO BID 11/13/17 [History] Doxycycline 100 mg PO BID #60 capsule 11/13/17 [Rx] FentaNYL PATCH [Duragesic] 25 mcg TD Q72H 30 Days #10 patch.td72 11/13/17 [Rx] Oxycodone HCl [Oxaydo] 5 - 10 mg PO Q6H PRN 15 Days #120 tablet.orl 11/13/17 [Rx ] Sennosides [Senna] 8.6 mg PO DAILY 11/13/17 [History] Vemurafenib [Zelboraf] 960 mg PO BID #240 tablet 11/14/17 [Rx] Allergies/Adverse Reactions: 3 Allergy/AdvReac Type Severity Reaction Status Date / Time adhesive tape AdvReac Rash Verified 11/20/17 11:32 Oxycodone [From Tylox] AdvReac Vomiting Verified 11/20/17 11:32 rivaroxaban [From Xarelto] AdvReac See Verified 11/20/17 11:32 Comments Certification: Further, I certify that my clinical findings support that this patient is homebound (i.e. absences from home require considerable and taxing effort and are for medical reasons or scientologist services or infrequently or short duration when for other reasons) because: Homebound Reason: Patient requires assistance of a person or device to safely leave home, Leaving home requires considerable and taxing effort due to condition Attestation: My signature below is to certify that this patient is under my care and that I, or nurse practitioner, or a physician's laboratory assistant working with me, has a face-to -face encounter with this patient.
== END 2017-11-25 19:12 | disposition home health service (06) | DRG 55 ==
LOC: EMEROO 11:22 → 3ANU 11:22
PROVIDERS: ADMIT Internal Medicine; ATTEND Internal Medicine